=== PATIENT | female | born 1935 | race Caucasian/White ===

== ENCOUNTER 2016-11-24 19:18 | Emergency (ER) | payer MEDICARE, MEDICAID ==
[~2016-11-24] VITALS: Ht 160 cm; Wt 76.8 kg
[~2016-11-24 19:18] MED LIST: AMIODARONE200 MG PO; ASPIRIN LOW DOS81 M1 PO; AZITHROMYCIN250 MG PO; BUPROPION150 MG PO; COMBIVENT INH; COUMADIN5 MG PO; DONEPEZIL PO; KLOR-CON 1010 ME1 PO; LASIX 20 MG TAB20 MG PO; LEVOTHYROXIN150 MC1 OR; LISINOPRIL10 MG OR; LOPRESSOR25 MG PO; OMEPRAZOLE20 MG PO; PRAVASTATIN40 MG PO; PREDNISONE10 MG PO; PROZAC40 MG; VICODIN1 TAB PO; ZOCOR20 MG OR
[2016-11-24 22:00] VITALS: BP 174/78
[2016-11-24] MEDS ORDERED: MEDDOSEPAK PO (22:01)
[2016-11-24] MEDS ORDERED: PEPCID20 MG PO (22:01)
[2016-11-24] MEDS ORDERED: BENADRYL 50MG C50 MG PO (22:01)
== END 2016-11-24 22:35 | disposition home or self-care (01) ==
LOC: ED 19:18
DX: T78.3XXA Angioneurotic edema, initial encounter (principal)

== ENCOUNTER 2017-12-25 15:37 | Emergency (ER) | payer MEDICARE, MEDICAID ==
[~2017-12-25] VITALS: Ht 160 cm; Wt 77.0 kg
[~2017-12-25 15:37] MED LIST changes: +ALDACTONE25 MG PO; +BENADRYL 50MG C50 MG PO; +CYMBALTA30 MG PO; +CYMBALTA60 MG PO; +DITROPAN PO; +FOLIC ACID1 M1 PO; +FOLIC ACID1 MG PO; +KLOR-CON 1010 MEQ PO; +LEVOTHYROXIN125 MC1 PO; +LISINOPRIL10 MG PO; +MEDDOSEPAK PO; +METOPROL TAR25 MG PO; +PEPCID20 MG PO; +PRAMIPEXOLE0.25 MG PO; +WELLBUTRIN SR150 MG PO
[2017-12-25] MEDS ORDERED: PERMETHRIN5 % EX (16:11)
[2017-12-25] MEDS ORDERED: VALACYCLOVIR500 MG PO (16:11)
[2017-12-25 16:20] VITALS: BP 125/49
== END 2017-12-25 16:20 | disposition home or self-care (01) ==
LOC: ED 15:37
DX: B02.9 Zoster without complications (principal); B86 Scabies

== ENCOUNTER 2018-06-04 02:27 | Emergency (ER) | payer MEDICARE, MEDICAID ==
[~2018-06-04] VITALS: Ht 157.5 cm; Wt 75.9 kg
[~2018-06-04 02:27] MED LIST changes: +PERMETHRIN5 % EX; +VALACYCLOVIR500 MG PO
[2018-06-04 03:17] LABS: HEMATOCRIT 35.1 % (37.0-47.0); HEMOGLOBIN 10.4 g/dl (12.0-16.0); IMMATURE GRANULOCYTES 0.4 % (0.0-5.0); MEAN CORPUSCULAR HGB 28.7 pG CALC (26.0-32.0); MEAN CORPUSCULAR HGB CONC 29.6 g/L CALC (32.0-36.0); NEUT# 9.12 thou/uL (2.00-7.15); RED BLOOD COUNT 3.62 mill/uL (4.20-5.60); RED CELL DISTRI WIDTH 15.6 % (11.5-15.5)
[2018-06-04 03:28] LABS: URINE BLOOD DIPSTICK MODERATE (NEGATIVE); URINE CLARITY SL CLOUDY; URINE COLOR YELLOW; URINE GLUCOSE - DIPSTICK NEGATIVE (NEGATIVE); URINE KETONE 15 mg/dL (NEGATIVE); URINE LEUK ESTERASE NEGATIVE (NEGATIVE); URINE NITRITE - DIPSTICK NEGATIVE (Negative); URINE PH 5.5 (4.5-8.0); URINE PROTEIN - DIPSTICK >=300 mg/dL (NEG-TRACE); URINE SPECIFIC GRAVITY >=1.030; URINE UROBILINOGEN - DIPSTICK 0.2 E.U./dL (0.2)
[2018-06-04 03:29] LABS: ALBUMIN 3.3 g/dL (3.2-5.0); BILIRUBIN, TOTAL 0.4 mg/dL (0.0-1.4); CREATININE 1.2 mg/dL (0.5-1.0); POTASSIUM 4.5 mmol/l (3.5-5.1); TOTAL PROTEIN 5.9 g/dL (6.3-8.2)
[2018-06-04 03:31] LABS: URINE BACTERIA FEW hpf; URINE BILIRUBIN - DIPSTICK NEGATIVE (NEGATIVE); URINE HYALINE CAST FEW lpf (NONE-RARE); URINE MUCUS FEW hpf (NONE-FEW); URINE SQUAMOUS EPITHELIAL CELL FEW EPI/hpf (0-FEW)
[2018-06-04 03:32] LABS: COCAINE NEGATIVE (NEGATIVE)
[2018-06-04 03:33] LABS: BARBITURATES NEGATIVE (NEGATIVE); METHADONE NEGATIVE (NEGATIVE); OXCYCODONE NEGATIVE (NEGATIVE); TETRAHYDROCANNABIONOL NEGATIVE (NEGATIVE); TRICYLIC ANTIDEPRESSANTS NEGATIVE (NEGATIVE)
[2018-06-04 06:15] VITALS: BP 91/57
== END 2018-06-04 06:15 | disposition short-term general hospital (02) ==
LOC: ED 02:27
PROVIDERS: Emergency Medicine
DX: K57.33 Diverticulitis of large intestine without perforation or abscess with bleeding (principal); D64.9 Anemia, unspecified; M54.5 Low back pain; I11.0 Hypertensive heart disease with heart failure; I50.9 Heart failure, unspecified; E03.9 Hypothyroidism, unspecified; F32.9 Major depressive disorder, single episode, unspecified; F41.9 Anxiety disorder, unspecified; Z86.19 Personal history of other infectious and parasitic diseases
CPT/HCPCS: J1956

== ENCOUNTER 2018-07-31 11:53 | Inpatient (IN) | payer MEDICARE, MEDICAID ==
[~2018-07-31] VITALS: Ht 157.5 cm; Wt 71.2 kg
--- NOTE | 2018-07-31 12:05 | NUR ---
PATIENT ARRIVED VIA EMS AND PHYSICIAN AT BEDSIDE FOR EVAL. PATIENT STATES HAS GENERALIZED WEAKNESS FOR PAST TWO WEEKS AND PROGRESSIVELY GETTING WORSE.
--- NOTE | 2018-07-31 12:16 | NUR ---
PT STATES TO NURSE "DO YOU SEE THAT SHIRT BREATHING OVER THERE?". 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 PT STATES SHE SEES HER SHERIE BEARS BREATHING AT HOME OFTEN. PT STATES SHE ALSO HAS SEEN "SNAKES THAT WERENT THERE AND THEY SCARED ME TO ". PT STATES SHE HAS HAVING VISUAL HALLUCINATIONS OFF AND ON FOR ABOUT THREE YEARS BUT HAVE BECOME MORE FREQUENT OVER THE LAST TWO WEEKS. PT FURTHER STATES "I SAW TWO LADIES IN MY HOUSE THIS MORNING WHO WEAR MAKING DOLL CLOTHES". PT DENIES THAT VISIONS TALK TO HER BUT STATES "I TALK TO THEM". PT STATES SHE TOLD HER PSYCHIATRIST ,DR SNYDER TWO VISITS AGO ABOUT HALLUCINAITONS BUT "HE DIDNT SAY ANYTHING". PT STATES SHE SEES DR SNYDER FOR "MY DEPRESSION". DR VIRK INFORMED OF ABOVE.
[2018-07-31 12:40] LABS: HEMATOCRIT 37.2 % (37.0-47.0); HEMOGLOBIN 11.4 g/dl (12.0-16.0); IMMATURE GRANULOCYTES 0.4 % (0.0-5.0); MEAN CELL VOLUME 94.7 fL CALC (80.0-100.0); MEAN CORPUSCULAR HGB CONC 30.6 g/L CALC (32.0-36.0); NEUT# 3.63 thou/uL (2.00-7.15); RED BLOOD COUNT 3.93 mill/uL (4.20-5.60); RED CELL DISTRI WIDTH 15.6 % (11.5-15.5)
[2018-07-31 12:45] LABS: ALKALINE PHOSPHATASE 119 u/l (38-126); ANION GAP 13 (6-22 (CALC)); BILIRUBIN, TOTAL 0.5 mg/dL (0.0-1.4); BUN 53 mg/dL (8-23); BUN/CREATININE RATIO 31 (12-20 (CALC)); C-REACTIVE PROTEIN < 0.5 mg/dL (0-0.9); CARBON DIOXIDE 25 mmol/l (22-30); CHLORIDE 106 mmol/l (95-108); CREATININE 1.7 mg/dL (0.5-1.0); GFR 29 ML/MIN (>=60 (CALC)); GFR FOR AFR.AMER. 35 ML/MIN (>=60 (CALC)); POTASSIUM 4.7 mmol/l (3.5-5.1); SGOT/AST 49 u/l (9-36); SODIUM 139 mmol/l (137-146)
[2018-07-31 12:47] LABS: ALBUMIN 4.2 g/dL (3.2-5.0); TOTAL PROTEIN 7.3 g/dL (6.3-8.2)
[2018-07-31 12:54] LABS: MYOGLOBIN 174 ng/mL (0 - 62)
--- NOTE | 2018-07-31 13:11 | NUR ---
PT RESTING WITHOUT COMPLAINT. VSS AT THIS TIME.
--- NOTE | 2018-07-31 13:30 | NUR ---
ENTERED PTS ROOM AND SHE WAS STRIPPING OFF ALL [place] AND FLAILING ARMS ABOUT. ASKED PT WHAT WAS WRONG AND SHE STARTED SCREAMING " THEY LEFT ME IN HERE WITH [facility] LIKE LAST TIME WITH NO CALL LIGHT. PT VERY ANXIOUS, SHOWED PT CALL LIGHT WAS ON HER STOMACH THE ENTIRE TIME. PT STARTED TO SETTLE DOWN, STATES THEY PUT ME IN A ROOM AT [place] TWO WEEKS AGO AND LEFT ME THERE. PT STATES SHE WAS AT [place] "BECAUSE MY NEIGHBOR CALLED THE [employer]ING CL[employer]ER BECAUSE I WAS SEEING SNAKES, BUT THEY WERENT HURTING ANYONE". DR VIRK AT BEDSIDE.
[2018-07-31] MEDS ORDERED: CLOPIDOGREL75 MG PO (13:53)
[2018-07-31] MEDS ORDERED: [UNRECOGNIZED DRUG - CODE] PO (13:54)
[2018-07-31] MEDS ORDERED: DULOXETINE HCL60 MG PO (13:55)
[2018-07-31] MEDS ORDERED: ROPINIROLE1 MG PO (13:59)
[2018-07-31] MEDS ORDERED: SPIRONOLACTONE25 MG PO (13:59)
--- NOTE | 2018-07-31 14:00 | NUR ---
PT UP TO USE BSC WITH ASSIST OF NURSE. PT LEANS FORWARD TO PUT WEIGHT LARGELY ON ARMS ON BED AND BSC HANDLES. PT MOVES SLOW AND STATES HER LEGS "DONT ALWAYS DO WHAT I TELL THEM TOO". ASSISTED BACK TO BED AFTER URINATION.
[2018-07-31 14:28] LABS: URINE BILIRUBIN - DIPSTICK NEGATIVE (NEGATIVE); URINE BLOOD DIPSTICK NEGATIVE (NEGATIVE); URINE COLOR YELLOW; URINE GLUCOSE - DIPSTICK NEGATIVE (NEGATIVE); URINE KETONE NEGATIVE (NEGATIVE); URINE LEUK ESTERASE NEGATIVE (NEGATIVE); URINE NITRITE - DIPSTICK NEGATIVE (Negative); URINE PH 5.5 (4.5-8.0); URINE PROTEIN - DIPSTICK NEGATIVE (NEG-TRACE); URINE SPECIFIC GRAVITY >=1.030; URINE UROBILINOGEN - DIPSTICK 0.2 E.U./dL (0.2)
[2018-07-31 14:35] LABS: URINE CLARITY CLEAR
--- NOTE | 2018-07-31 14:45 | NUR ---
ASSISTED PT TO SIT UP ON BEDSIDE WITH FEET DANGLING DUE TO "NADYA HORSES IN MY LEGS".
--- NOTE | 2018-07-31 15:04 | NUR ---
PT SITTING UP ON SIDE OF BED EATING LUNCH TRAY. NO OBVIOUS EPISODES OF VISUAL HALLUCINATIONS IN THE LAST FEW HOURS. PT STATES CRAMPING IN LEGS HAS SUBSIDED WITH SITTING UP WITH LEGS DANGLING. VSS. IVF BOLUS CONTINUES WITHOUT DIFFICULTY.
[2018-07-31 15:30] VITALS: BP 103/49
--- NOTE | 2018-07-31 15:30 | NUR ---
PT UP TO BEDSIDE FOR ORTHOSTATIC VS. PT STATES SHE IS DIZZY WHEN GOING FROM SUPINE TO SITTING. IVF BOLUS CONTINUES
[2018-07-31 16:07] LABS: BARBITURATES NEGATIVE (NEGATIVE); COCAINE NEGATIVE (NEGATIVE); METHADONE NEGATIVE (NEGATIVE); OXCYCODONE NEGATIVE (NEGATIVE); TETRAHYDROCANNABIONOL NEGATIVE (NEGATIVE); TRICYLIC ANTIDEPRESSANTS NEGATIVE (NEGATIVE)
--- NOTE | 2018-07-31 16:33 | NUR ---
CALLED REPORT TO YOGESH CHRISTIE LPN
--- NOTE | 2018-07-31 17:01 | NUR ---
TRANSPORTED TO [facility] VIA STRETCHER IN STABLE CONDITION
--- NOTE | 2018-07-31 17:06 | NUR ---
PT ARRIVES TO THE FLOOR VIA STRETCHER FROM ER IN STABLE CONDITION WITH SOPHIE QUEZADA RN. PT TRANSFERED FROM [facility] TO BED WITH 2 ASSIST. PT AT THIS TIME IS A&O x3. PT ABLE TO ANSWER MY QUESTIONS APPROPIATELY. ASSESMENT COMPLETED AT THIS TIME(SEE INTERVENTIONS). LUNG SOUNDS CLEAR BILATERALLY. 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 NO EDEMA NOTED. BRUSING TO ABD NOTED PT STATES "I SOMETIMES GET BELLY ACHES AND WHEN THAT HAPPENS AND IF IT GETS TOO BAD I PUNCH MYSELF IN THE STOMACH". REDDISH BRUSING NOTED TO LEFT KNEE PT STATES" THATS BEEN LIKE THAT I THINK FROM CRAWLING AROUND ON THE FLOOR" TILTROTOR CREW CHIEF ASKED WHY SHE WAS ON THE FLOOR PT STATES "BECAUSE I WAS FIXING AN OUTLET" PT HAS SMALL AREA TO RIGHT HEEL THAT IS CLEAN, DRY AND INTACT. ALSO TO RED AND DRIED BLOOD NOTED TO PINKY TOE. PT COMPLAINING OF SEVERE LEG CRAMPS. #20 IN THE RAC FLUSHES WELL. FLUIDS HUNG PER ORDER. PT SET UP FOR SUPPER. NO OTHER COMPLAINTS AT THIS TIME. CALL NEREIDA IN REACH. WILL CONTINUE TO MONITOR.
[2018-07-31 17:34] VITALS: BP 100/50
--- NOTE | 2018-07-31 18:10 | NUR ---
DR GODINEZ NOTIFIED OF PTS LEG PAIN. NEW ORDERS RECEIVED.
[2018-07-31 19:00] VITALS: BP 120/61
--- NOTE | 2018-07-31 19:34 | NUR ---
PATIENT SITTING ON THE SIDE OF THE BED ROCKING BACK AND FORTH-EXTREMELY RESTLESS, C/O SEVERE BLE PAIN AND PAIN IN HER WAIST. PATIENT MEDICATED FOR HIGH ANXIETY WITH ATIVAN 1MG IVP ORDERED VIA RIGHT AC SITE-SITE APPEARS HEALTHY WITH GOOD BLOOD RETURN. IVF LR PATENT AND INFUSING AT 100CC/HR. ASSISTED PATIENT BACK INTO THE BED. HOB ELEVATED AND PATIENT WITH GOOD EFFECT FROM ATIVAN GIVEN. BED ALARM IN PLACE FOR PATIENT SAFETY. CALL LIGHT IN REACH. WILL CONT TO MONITOR.
--- NOTE | 2018-07-31 22:24 | NUR ---
RESPONDING TO BED ALARM-PATIENT FOUND SITTING UP AGAIN ON THE SIDE OF THE BED WITH BLOOD FROM IV SITE EVERYWHERE IN THE ROOM. LINENS ARE BLOODY, BLOOD ON THE FLOOR, BLOOD ALL OVER PATIENT, PATIENT CONT WITH THE ROCKING AND INAPPROPRIATE BEHAVIOR. PATIENT APPEARS TO BE HAVING HALLUCINATIONS. PATIENT ASSISTED BACK TO THE BED AND COMPLETE BED BATH WAS GIVEN. LINENS WERE ALL CHANGED AND HOUSEKEEPING CALL TO ASSIST WITH CLEAN UP OF THE ROOM. DR. GODINEZ CALLED REGUARDING PATIENT INAPPROPRIATE BEHAVIOR EVEN AFTER BEING MEDICATED EARLIER WITH ATIVAN. NEW ORDER RECIEVED AND AWAITING IT BEING PROFILED ON EMAR-WILL MEDICATE WHEN ABLE. BED ALARM IN PLACE. WILL CONT TO MONITOR.
--- NOTE | 2018-07-31 22:30 | NUR ---
RESPONDING TO BED ALARM-PATIENT FOUND SITTING UP ON THE SIDE OF THE BED WITH BLOOD FROM IV SITE EVERYWHERE IN THE ROOM. LINENS ARE BLOODY, BLOOD ON THE FLOOR AND PATIENT PLAYING IN THE BLOOD ON THE FLOOR, BLOOD ALL OVER PATIENT. PATIENT APPEARS TO BE HAVOING HALLUCINATIONS, INAPPROPRIATE BEHAVIOR. PATIENT MAX ASSIST BACK INTO THE BED AND COMPLETE BEDPATH AND LINEN CHANGE WAS DONE. PATIENT WITH BRUISING NOTED ALL OVER HER BODY, ARMS AND LEGS. HOUSEKEEPING CALLED FOR TO ASSIST WITH ROOM CLEAN UP. DR. GODINEZ CALLED REGUARDING PATIENT OINAPPROPRIATE BEHAVIOR EVEN AFTER BEING MEDICATED WITH ATIVAN EARLIER. NEW ORDER RECIEVED AND AWAITING IT TO BE PROFILED ON E-MAR. WILL MEDICATE WHEN ABLE. BED ALARM IN PLACE. WILL CONT TO MONITOR.
[2018-08-01 00:28] VITALS: BP 157/73
--- NOTE | 2018-08-01 02:20 | NUR ---
PATIENT RESTING IN BED WITH BED ALARMS IN PLACE FOR PATIENT SAFETY. PATIENT IS CALMER BUT STILL RESTLESS WITH CONSTANT TWITCHING AND MOVEMENT OF ALL EXTREMITIIES. IVF PATENT AND INFUSING VIA RIGHT AC SITE AT 100CC/.HR. SITE REMAINS HEALTHY AT THIS TIME. BED ALARM REMAINS IN PLACE FOR PATIENT SAFETY. CALL LIGHT IN REACH. WILL CONT TO MONITOR.
[2018-08-01 04:11] VITALS: BP 99/53
--- NOTE | 2018-08-01 04:15 | NUR ---
RESPONDED TO BED ALARM AND PATIENT IS [id number] TO GET OOB-SPRAWLED ACROSS THE BED. PATIENT CONT WITH SPASTIC MOVEMENT OF ARMS AND LEGS. STATES THAT SHE HAS TO URINATE. MAX ASSIST TO TRANSFER PATIENT FROM BED TO BSC-PATIENT IS INCONT OF MODERATE AMT OF URINE DURING TRANSFERAND UNABLE TO STAND TO ASSIST WITH THE TRANSFER.PLACED ON BSC TO VOID BY STAFF. CONT TO HAVE SPASTIC MOVEMENTS AND FLAILING HER ARMS AND LEGS WHILE URINATING ON THE BSC. MUMBLING TO HERSELF. BEHAVIOR IS INAPPROPRIATE. WHEN ASKED SOME QUESTIONS PATIENT IS ABLE TO ANSWER CORRECTLY. KNOWS WHERE SHE IS AND BIRTHDATE. KNOWS HER NAME BUT THEN GOES BACK TO INAPPROPRIATE BEHAVIOR. MAX ASSIST BACK TO THE BED. REPOSITIONED. STAFF SITTING AT BEDSIDE AT THIS TIME FOR PATIENT SAFETY. WILL CONT TO MONITOR.
[2018-08-01 05:09] LABS: HEMATOCRIT 34.6 % (37.0-47.0); HEMOGLOBIN 10.7 g/dl (12.0-16.0); IMMATURE GRANULOCYTES 0.5 % (0.0-5.0); MEAN CELL VOLUME 94.8 fL CALC (80.0-100.0); MEAN CORPUSCULAR HGB 29.3 pG CALC (26.0-32.0); MEAN CORPUSCULAR HGB CONC 30.9 g/L CALC (32.0-36.0); NEUT# 6.94 thou/uL (2.00-7.15); RED BLOOD COUNT 3.65 mill/uL (4.20-5.60); RED CELL DISTRI WIDTH 15.5 % (11.5-15.5)
[2018-08-01 05:20] LABS: ALBUMIN 3.7 g/dL (3.2-5.0); BILIRUBIN, TOTAL 0.5 mg/dL (0.0-1.4); CREATININE 1.6 mg/dL (0.5-1.0); MAGNESIUM 1.8 mg/dL (1.6-2.3); POTASSIUM 4.8 mmol/l (3.5-5.1); TOTAL PROTEIN 6.3 g/dL (6.3-8.2)
--- NOTE | 2018-08-01 06:26 | NUR ---
PATIENT CONT WITH ABNORMAL BEHAVIOR WITH SPASTIC MOVEMENTS WITH ARMS AND LEGS. MUMBLING TO HERSELF. STAFF SITTING AT BEDSIDE TO PREVENT PATIENT FROM INJURING HERSELF. MEDICATED WITH ATIVAN 1MG IVP FOR EXTREMELY HIGH ANXIETY. BED ALARM IN PLACE FOR PATIENT SAFETY. CALL LIGHT IN REACH. WILL CONT TO MONTIOR.
--- NOTE | 2018-08-01 07:00 | NUR ---
RECEIVED REPORT FROM JEAN-CLAUDE MENG. PT RESTLESS IN BED AT THIS TIME. SITER FLORA AT BEDSIDE FOR PTS SAFETY. CALL PADRON IN REACH. WILL CONTINUE TO MONITOR.
[2018-08-01 08:53] VITALS: BP 109/49
--- NOTE | 2018-08-01 08:53 | NUR ---
PT RESTLESS IN BED INCONTINENT OF URINE. ROLLING AROUND THE BED. SITTER JAH AT BEDSIDE FOR PTS SAFTEY. PT AWAKES TO LOUD VERBAL STIMUILI. PT MEDICATED PER ORDER. TOOK PO PILLS WITH WATER FINE. 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 HYPOACTIVE BOWEL SOUNDS. NO SWELLING OR EDEMA NOTED. PT HAS MULITPLE BRUISES ALL OVER BODY. PT IS LETHARGIC, MUMBLING THINGS TO SELF.# 20 IN THE RAC INFUSING WELL NO REDNESS OR EDEMA NOTED. CALL PADRON IN REACH WILL CONTINUE TO MONITOR.
--- NOTE | 2018-08-01 10:30 | NUR ---
PT HAVING EPISODES OF INCONTINENCE. PT CLEANED AND REPSITIONED IN BED. PT REMAINS DROWSY. NEICE AT BEDSIDE.
--- NOTE | 2018-08-01 11:40 | NUR ---
PT VOIDED 20CC OF URINE IN BED TAVAREZ. PT ADAMANT ABOUT SITTING ON THE SIDE OF THE BED. PILLOWS PLACED BEHIND PT FOR SANAM LUNA IS SITTING IN A CHAIR IN FRONT OF HER. NIECE FEEDING PT AT THIS TIME. BED ALARM IN PLACE. CALL PADRON IN REACH. WILL CONTINUE TO MONITOR.
--- NOTE | 2018-08-01 15:03 | NUR ---
PT TAKEN DOWN TO RADIOLOGY FOR US/ OF KIDNEYS AND BLE, INSTRUCTED PT TO TRY HER BEST NOT TO MOVE HER LOWER EXTREMITIES. PT TAKEN VIA STRETCHER ACCOMPANIED BY REHAB AIDE. CONTINUE TO MONITOR.
--- NOTE | 2018-08-01 15:35 | NUR ---
PT RETURNED FROM ULTRA SOUND. PT YELLING AND MOANING. PT REPOSTIONED BACK INTO BED. MEDS GIVEN ORDERED FOR AGITATION. CALL PADRON IN REACH. WILL CONTINUE TO MONITOR.
[2018-08-01 16:47] VITALS: BP 109/49
--- NOTE | 2018-08-01 18:17 | NUR ---
PT RESTING IN BED. PT CALM AT THIS TIME. PT CLEANED BY TRANSPORTATION PLANNING TECHNICIAN OF LARGE AMOUNT OF URINE. WILL CONTINUE TO MONITOR.
[2018-08-01 18:45] VITALS: BP 126/72
--- NOTE | 2018-08-01 19:59 | NUR ---
PATIENT IS RESTING QUIETLY IN BED AT THIS TIME WITH EYES CLOSED. RESP ARE EVEN AND UNLABORED. SALINE LOCK TO RIGHT AC 8INTACT AND APPEARS HEALTHY AT THIS TIME. BED ALARM IN PLACE FOR PATIENT SAFETY. CALL LIGHT IN REACH. WILL CONT TO MONITOR.
--- NOTE | 2018-08-01 20:50 | NUR ---
PATIENT RESTING IN BED. REFUSES KARIME FLOOD STATES THAT SHE HAD 2BM'S TODAY. MEDICATED FOR SLEEP WITH ATIVAN AND FOR PAIN WITH PERCOCET. CALL LIGHT IN REACH. WILL CONT TO MONITOR.
--- NOTE | 2018-08-01 22:40 | NUR ---
PATIENT BECOMING SOMEWHAT RESTLESS-MEDICATED WITH ATIVAN 1MG IVP ORDERED FOR ANXIETY. BED ALARM IN PLACE. CALL LIGHT IN REACH. WILL CONT TO MONITOR.
--- NOTE | 2018-08-01 23:39 | NUR ---
PATIENT CALLED FOR ASSISTANCE-STATES THAT SHE HAS TO URINATE. PATIENT ASSSITED WITH BEDPAN AND VOIDED 300CC OF YELLOW URINE. ASSISTED WITH VERN-CARE. PATIENT CONT TO HAVE FREQ MOVEMENT OF HER LEGS. DENIES ANY PAIN AT THIS TIME. PATIENT ANSWERS SOME SIPLE QUESTIONS APPROPRIATELY BUT NO EYE CONTACT IS BEING MADE. BED ALARM IN BACK IN PLACE. CALL LIGHT IN REACH. WILL CONT TO MONITOR.
--- NOTE | 2018-08-02 03:39 | NUR ---
PATIENT SLOIGHTLY AGITATED-PLACE ON BEDPAN TO VOID. PATIENT THEN MEDICATED FOR ANXIETY WITH ATIVAN 1MG IVP ORDERED. BED ALARM IN PLAE. CALL LIGHT IN REACH. WILL CONT TO MONITOR.
[2018-08-02 04:22] VITALS: BP 105/55
[2018-08-02 05:12] LABS: HEMATOCRIT 32.9 % (37.0-47.0); IMMATURE GRANULOCYTES 0.5 % (0.0-5.0); MEAN CELL VOLUME 96.2 fL CALC (80.0-100.0); MEAN CORPUSCULAR HGB 29.2 pG CALC (26.0-32.0); MEAN CORPUSCULAR HGB CONC 30.4 g/L CALC (32.0-36.0); NEUT# 4.29 thou/uL (2.00-7.15); RED BLOOD COUNT 3.42 mill/uL (4.20-5.60); RED CELL DISTRI WIDTH 15.6 % (11.5-15.5)
--- NOTE | 2018-08-02 05:24 | NUR ---
PATIENT RESTING IN BED WITH RESTLESS LEGS AGAIN AND C/O LEG CRAMPING. PATIENT MEDICATED WITH DILAUDID 1MG IVP FOR PAIN. BED ALARM IN PLACE FOR PATIENT SAFETY. CALL LIGHT IN REACH. WILL CONT TO MONITOR.
[2018-08-02 05:32] LABS: ALBUMIN 3.1 g/dL (3.2-5.0); BILIRUBIN, TOTAL 0.7 mg/dL (0.0-1.4); CREATININE 1.2 mg/dL (0.5-1.0); MAGNESIUM 1.8 mg/dL (1.6-2.3); POTASSIUM 4.3 mmol/l (3.5-5.1); TOTAL PROTEIN 5.6 g/dL (6.3-8.2)
--- NOTE | 2018-08-02 07:22 | NUR ---
REPORT RECEIVED FROM TAQUERIA BERMEO. PT SUPINE IN BED. SLEEPING. CALL LIGHT WITHIN REACH. BED ALARM SET FOR SAFETY. WILL CONTINUE TO MONITOR.
[2018-08-02 08:20] VITALS: BP 116/47
--- NOTE | 2018-08-02 09:06 | NUR ---
PT SITTING IN WHEELCHAIR BEDSIDE BED. UNDERWATER ROBOTICIST AT BEDSIDE TO ASSIST WITH MEAL AND SAFETY. PLAN OF CARE REVIEWED. AOX3, PT DOES NOT REMEMBER ADMISSION TO HOSPITAL OR PRECIPITATING FACTORS. RE-ORIENTED TO SITUATION. FALL PRECAUTIONS REINFORCED. CALL LIGHT REVIEWED AND IN REACH. GENERALIZED WEAKNESS NOTED. DROWSY.
--- NOTE | 2018-08-02 10:23 | NUR ---
MARGARET DONAHUE IN TO SEE PT. AT THIS TIME.
--- NOTE | 2018-08-02 12:30 | NUR ---
DR. CRANE IN TO SEE PT.
[2018-08-02 15:50] VITALS: BP 104/60
--- NOTE | 2018-08-02 16:24 | NUR ---
ATTEMPTED KAYCE HOSE APPLICATION AGAIN TODAY PER ORDER. PT. REFUSING R/T LEG PAIN. PT. INTERMITTENTLY SCREAMING OUT, CURSING. MOT ORIENTED TO SITUATION. STATES "I'M FUCKING PARALYZED." PT. ABLE TO REPOSITION LEGS ON OWN. EMOTIONAL SUPPORT PROVIDED FOR DE-ESCALATION.
[2018-08-02 19:01] VITALS: BP 112/61
--- NOTE | 2018-08-02 19:10 | NUR ---
REPORT RECEIVED FROM DAY NURSE. PT IS SITTING UPRIGHT IN RECLINER SLEEPING. NO S/S OF DISTRESS AT THIS TIME. CALL LIGHT AT SIDE W/IN REACH.
--- NOTE | 2018-08-02 21:16 | NUR ---
PT MEDICATED ORDERS PROVIDE AND FOR C/O PAIN. PT LOCX4/SELF,,LOCATION,YEAR, BUT ALSO SAYS INAPPROPRIATE THINGS IN A GARBLISH MANOR. DIFFICULT TO UNDERSTAND AT TIMES AND THEN WILL BE VERY CLEAR SPOKEN AT TIMES. BED ALARM IS ON. PT ASKED WHO ALL IS IN THE ROOM. I INFORMED HER ONLY ME, BUT SHE THOUGHT THERE WERE MORE PEOPLE IN THE ROOM. WOULD NOT DESCRIBE THEM. I ATTEMPTED AT REORIENTING PT.
--- NOTE | 2018-08-02 23:35 | NUR ---
PT IV SITE LEAKING/APPEARS HEALTHY, SITE REMOVED AND NEW IV SITE ACCESSED. PT MEDICATED ORDERS PROVIDE FOR AXIOUSNESS, ANXIETY. PT IS TRYING TO AMBULATE AND UN ABLE, BED ALARM IS ON. CALL LIGHT AT SIDE.
--- NOTE | 2018-08-03 02:16 | NUR ---
PT IS EXTREMELY FIDGETY SETTING OFF BED ALARMS MULTIPLE TIMES THROUGHOUT NIGHT. AIDE IS SITTING W/PT AT THIS TIME PREVENTATIVE AND TO ATTEMPT TO COMFORT/CALM PT. WILL CONTINUE TO MONITOR.
[2018-08-03 04:29] VITALS: BP 104/57
[2018-08-03 05:08] LABS: HEMATOCRIT 30.9 % (37.0-47.0); HEMOGLOBIN 9.3 g/dl (12.0-16.0); IMMATURE GRANULOCYTES 0.4 % (0.0-5.0); MEAN CELL VOLUME 96.3 fL CALC (80.0-100.0); MEAN CORPUSCULAR HGB CONC 30.1 g/L CALC (32.0-36.0); NEUT# 5.78 thou/uL (2.00-7.15); RED BLOOD COUNT 3.21 mill/uL (4.20-5.60); RED CELL DISTRI WIDTH 15.4 % (11.5-15.5)
[2018-08-03 05:18] LABS: CREATININE 1.3 mg/dL (0.5-1.0); MAGNESIUM 1.7 mg/dL (1.6-2.3); POTASSIUM 4.4 mmol/l (3.5-5.1)
--- NOTE | 2018-08-03 05:41 | NUR ---
PT ASSISTED TO BSC, SHE HELD HER WEIGHT W/HER LEGS W/ASSISTANCE. STRONGER THAN LAST NIGHT ATTEMPT. PT ASSISTED BACK TO BED AND BED ALARM PLACED.
--- NOTE | 2018-08-03 07:00 | NUR ---
RECEIVED REPORT FROM RAMON MENG. ATMOSPHERIC CHEMIST AT BEDSIDE WITH PT ASSISTING HER WITH ADLS. NO S/S OF DISTRESS. WILL CONTINUE TO MONITOR.
--- NOTE | 2018-08-03 09:00 | NUR ---
PT RESTING IN BED EATING BREAKFAST. 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 BOWEL SOUNDS ACTIVE, NO SWELLING OR EDEMA NOTED. PT HAS MULITPLE BRUSING ON BODY AND REDDENED SKIN TO LOWER EXTREMITIES. IV FLUSHES WELL, NO REDNESS OR EDNEAM NOTED. PT REORIENTED TO ROOM AND CALL PADRON SYSTEM. CALL PADRON IN REACH. WILL CONTINUE TO MONITOR.
[2018-08-03 09:07] VITALS: BP 130/63
--- NOTE | 2018-08-03 10:25 | NUR ---
PT MEDICATED WITH TYLENOL FOR PAIN. PT COMPLAINING OF 10/10 PAIN. CHERYL AT BEDSIDE. PT RESTING HEAD ON BEDSIDE TABLE THEN THROWING HERSELF BACKWARDS. PT STATES HER PAIN IS BAD. CALL PADRON IN REACH. WILL CONTINUE TO MONITOR.
--- NOTE | 2018-08-03 10:48 | NUR ---
PT MEDICATED FOR PAIN. PT THRASHING AROUND AND CRYING COMPLAINING OF 10/[address] PAIN. BED ALARM IN PL[address] WILL CONTINUE TO MONITOR.
--- NOTE | 2018-08-03 11:30 | NUR ---
PT IN CHAIR AT THIS TIME EATING LUNCH. NIECE AT BEDSIDE. PT IS THROWING HERSELF BACKWARD, CURSING AND COMPLAINING OF 10/10 PAIN IN LOWER EXTREMITIES. GODFREY ROBLES AWARE OF PT STATUS. BED ALARM IN PLACE AT THIS TIME. WILL CONTINUE TO MONITOR.
--- NOTE | 2018-08-03 11:33 | NUR ---
AND GODFREY BURNHAM,ANRP AT BEDSIDE DISCUSSING POC.
--- NOTE | 2018-08-03 11:47 | NUR ---
PT STILL COMPLAINING FOR PAIN. MEDICATED ORDERED. PT STILL COMPLAINING OF 10/10 PAIN. GODFREY MADE AWARE. CALL PADRON IN REACH. WILL CONTINUE TO MONITOR.
--- NOTE | 2018-08-03 13:40 | NUR ---
PT MEDICATED WITH ATIVAN AT THIS TIME PT ROLLING AROUND AND YELLING. BED ALARM IN PLACE. WILL CONTINUE TO MONITOR.
--- NOTE | 2018-08-03 14:50 | NUR ---
RAMESH SENIOR SOFTWARE TEST ENGINEER IN TO SEE PT. GENERAL MAINTENANCE HELPER JEAN-CLAUDE NOTIFED. SENIOR SOFTWARE TEST ENGINEER IN WITH JEAN-CLAUDE FROM CASE MANAGEMENT.
[2018-08-03 15:00] VITALS: BP 116/50
--- NOTE | 2018-08-03 16:00 | NUR ---
PT RESTING IN BED AT THIS TIME, MUMBLING AND TOSSING AND TURNING. NEICE AT BEDSIDE. WILL CONTINUE TO MONITOR. CALL PADRON IN REACH.
[2018-08-03 19:00] VITALS: BP 170/57
--- NOTE | 2018-08-03 19:49 | NUR ---
PT SET OFF BED ALARM, CONFUSED NOT KNOWING WHERE SHE IS. PT IS KICKING HER LEGS C/O PAIN IN LEGS. PT REORIENTED TO SITUATION AND LOCATION AND BED ALARM PLACED.
--- NOTE | 2018-08-03 20:05 | NUR ---
PT MEDICATED ORDERS PROVIDE. PT WAS WRITHING LIKE SHE WAS IN EXTREME PAIN IN LOWER EXTREMETIES BILAT THEN SHE WOULD ACT GROGGY UNABLE TO HOLD HER CUP. THEN SHE WOULD CLIMB OUT OF BED REPORTING PAIN IN LEGS AND THEN APPEAR GROGGY AND UN ABLE TO HOLD HER CUP. PT WAS ABLE TO ANSWER NAME, , EXACT LOCATION.
--- NOTE | 2018-08-03 21:42 | NUR ---
PT IS SLEEPING AT THIS TIME. BED ALARM ON.
--- NOTE | 2018-08-04 01:20 | NUR ---
PT SET OFF BED ALARM, PT FOUND SITTING ON SIDE OF THE BED ATTEMPTING TO GET UP TO USE RESTROOM. PT ASSISTED TO BSC AND BACK TO BED. BED ALARM ON, LIGHTS ARE LOW AND CALL LIGHT AT SIDE.
--- NOTE | 2018-08-04 03:15 | NUR ---
PT IS SLEEPING, NO S/S OF DISTRESS NOTED. CALL LIGHT AND BED ALARM ARE IN PLACE AND ON.
[2018-08-04 04:58] VITALS: BP 123/63
--- NOTE | 2018-08-04 04:59 | NUR ---
PT ASSISTED TO BSC AND BACK TO BED. BED ALARM SET OFF FROM PT ATTEMPTING TO AMBULATE. CALL LIGHT IS AT BEDSIDE, BUT PT DOES NOT REMEMBER TO CALL OR HOW TO CALL. PT WEIGHED AND MEDICATED ORDERS PROVIDE. CALL LIGHT W/IN REACH, BED ALARM ON AND LIGHTS TURNED DOWN.
[2018-08-04 05:46] LABS: CREATININE 1.1 mg/dL (0.5-1.0); MAGNESIUM 1.8 mg/dL (1.6-2.3); POTASSIUM 4.4 mmol/l (3.5-5.1)
[2018-08-04 05:49] LABS: HEMATOCRIT 34.2 % (37.0-47.0); IMMATURE GRANULOCYTES 0.5 % (0.0-5.0); MEAN CELL VOLUME 98.3 fL CALC (80.0-100.0); MEAN CORPUSCULAR HGB 28.7 pG CALC (26.0-32.0); MEAN CORPUSCULAR HGB CONC 29.2 g/L CALC (32.0-36.0); NEUT# 3.46 thou/uL (2.00-7.15); RED BLOOD COUNT 3.48 mill/uL (4.20-5.60); RED CELL DISTRI WIDTH 15.6 % (11.5-15.5)
[2018-08-04 08:20] VITALS: BP 151/79
--- NOTE | 2018-08-04 08:20 | NUR ---
ASSESSMENT IS COMPLTED. PT IS RESTING IN BED WITH NO DISTRESS NOTED. IV SITE IS FREE FROM REDNESS OR EDEMA. HR IS REG, PULSES ARE STRONG X4, ABD IS SOFT WITH ACTIVE BS. CONTINUE TO OSBERVE AND MONITOR.
--- NOTE | 2018-08-04 10:00 | NUR ---
GAVE MEDICATION FOR THE SPASM IN HER BACK . EXPLAINED TO PT AND FAMILY THAT IT TAKES A LITTLE TIME FOR IT TO WORK. VERBALIZED UNDERSTANDING.
--- NOTE | 2018-08-04 12:15 | NUR ---
PT IS IN THE CHAIR FOR LUNCH, WITH ASSISTANCE BY 2 STAFF, PT HAD A SPAPSM WHILE IN THE CHAIR, AND LEGS WERE FLAILING. WHEN IT CALMED DOWN THEN PT WAS ABLE TO SIT UP STRAIGHT IN THE CHAIR AND FINISH LUNCH, IV SITE IS FREE FROM REDNESS OR EDMA.
--- NOTE | 2018-08-04 13:45 | NUR ---
PT WENT TO HAVE A CT OD THE L AND T SPINE. UPON RETURN REPLACED BACK INTO BED, GAVE A SLIGHT BACK RUB ON THE LOWER BACK , PT STATED " THAT FEELS GOOD RIGHT THERE THAT IS WHERE I HAVE THE PAIN". CONTINUE TO OSBERVE AND MONITOR.
[2018-08-04 15:56] VITALS: BP 85/31
--- NOTE | 2018-08-04 16:00 | NUR ---
PT HAS BEEN RELAXING IN BED WITH NO DISTRESS NOTED. IV SITE IS FREE FROM REDNESS OR EDEMA.
--- NOTE | 2018-08-04 19:13 | NUR ---
BEDSIDE REPORT RECEIVED FROM WANDA MACIAS. PT ASLEEP IN BED WITH EYES CLOSED AND LIGHTLY SNORING. NO SIGNS OF DISTRESS. RESPIRATIONS EVEN AND UNLABORED ON ROOM AIR. SAFETY MEASURES IN PLACE INCLUDING BED ALARM. CALL LIGHT WITHIN REACH.
--- NOTE | 2018-08-04 19:45 | NUR ---
PT USED CALL LIGHT TO REQUEST REPOSITIONING. SEVERAL ITEMS FROM TABLE FOUND ON THE GROUND AND WATER PITCHER SPILLED. PT APOLOGIZED FOR THE ACCIDENT. ASSISTED TO BSC TO VOID; PT WAS INCONTENT OF URINE IN THE BED SHE WAS SITTING UP. HYGIENE GIVEN; BED LINENS CHANGED; HS CARE AND TEETH BRUSHED. REPOSITIONED BACK INTO BED AND PT QUICKLY FELL BACK ASLEEP. BLOOD PRESSURE 92/37; WILL HOLD METOPROLOL.
[2018-08-04 20:00] VITALS: BP 92/37
[2018-08-05 00:03] VITALS: BP 117/54
--- NOTE | 2018-08-05 00:06 | NUR ---
PT ASSISTED TO BSC AT THIS TIME X 2 PERSON ASSIST; VOIDED 500ML CLEAR YELLOW URINE. DENIES PAIN CURRENLTY. RESPIRATIONS EVEN AND UNLABORED ON ROOM AIR. IV SITE APPEARS HEALTHY AND FLUSHES. CALL LIGHT WITHIN REACH.
[2018-08-05 04:14] VITALS: BP 87/48
--- NOTE | 2018-08-05 04:18 | NUR ---
PT AWAKENED TO TACTILE STIMULI FOR VS AND LAB WORK; BLOOD PRESSURE LOW AT 87/48; ASYMPTOMATIC. REQUESTS A SNACK AT THIS TIME; SITTING UP EATING ICE CREAM. NO ACUTE CHANGES THROUGHOUT THE NIGHT. SAFETY MEASURES IN PLACE. CALL LIGHT WITHIN REACH.
[2018-08-05 05:02] LABS: HEMATOCRIT 31.7 % (37.0-47.0); HEMOGLOBIN 9.4 g/dl (12.0-16.0); IMMATURE GRANULOCYTES 0.4 % (0.0-5.0); MEAN CELL VOLUME 97.5 fL CALC (80.0-100.0); MEAN CORPUSCULAR HGB 28.9 pG CALC (26.0-32.0); MEAN CORPUSCULAR HGB CONC 29.7 g/L CALC (32.0-36.0); NEUT# 2.83 thou/uL (2.00-7.15); RED BLOOD COUNT 3.25 mill/uL (4.20-5.60); RED CELL DISTRI WIDTH 15.8 % (11.5-15.5)
[2018-08-05 05:14] LABS: CREATININE 1.3 mg/dL (0.5-1.0); POTASSIUM 4.2 mmol/l (3.5-5.1)
--- NOTE | 2018-08-05 06:15 | NUR ---
DR. CRANE NOTIFIED OF BLOOD PRESSURES THIS SHIFT AND NO BOWEL MOVEMENT X 4 DAYS. IV FLUIDS RESTARTED AND NEW MEDICATION ORDERS RECEIVED.
--- NOTE | 2018-08-05 07:38 | NUR ---
SHIFT CHANGE REPORT FROM CRYSTAL AUGIRRE SLEEPING IN RIGHT SIDE-LYING POSITION, BREATNING EVEN AND NON-LABORED, IVF INFUSING, CALL PADRON IN REACH.
[2018-08-05 08:20] VITALS: BP 108/42
--- NOTE | 2018-08-05 12:03 | NUR ---
ASSISTED TO BSC BY 2 STAFF, PT BORE WEIGHT AND NEEDED MINIMAL ASSISTANCE; HOWEVER, PT WAS UNABLE TO BEAR ANY WEIGHT AND BEDAME ALMOST FLACCID TO TRANSFER BACK TO BED, MAN POWER WAS NEEDED FOR THIS TRANSFER AND WAS OBTAINED.
--- NOTE | 2018-08-05 12:08 | NUR ---
DR CRANE AND MARGARET ROUNDED, DISCUSSED PLAN OF CARE.
[2018-08-05 16:15] VITALS: BP 116/43
--- NOTE | 2018-08-05 19:15 | NUR ---
REPORT RECEIVED FROM DAY NURSE. PT IS SITTING UPRIGHT IN BED W/LIGHTS AND TV ON. PT APPEARS CALM, IS GOING THROUGH PURSE. DENIES ANY PAIN OR DISTRESS AND IS ASKING FOR SNACKS. CALL LIGHT NEXT TO PT W/IN REACH.
[2018-08-05 20:00] VITALS: BP 114/51
--- NOTE | 2018-08-05 20:20 | NUR ---
PT MEDICATED ORDERS PROVIDE. SNACK PROVIDED AND SANDWICH PER PT REQUEST. PT LOC TO SELF AND LOCATION/SITUATION. PT ENCOURAGED TO MOVE SELF IN BED AND REPOSITION SELF. PT PLACED ON BEDPAN AND BACK OFF FOR URINATION. WILL CONTINUE TO MONITOR. BED ALARM ON AND LIGHTS TURNED LOW, TV ON. CALL LIGHT IN HAND
--- NOTE | 2018-08-06 04:04 | NUR ---
PT IV FLUIDS REPLENISHED, PT REPORTED THAT SHE IS WET, PT CLEANED OF INCONTINENT URINE AND BEDDING CHANGED. BED ALARM ON.
[2018-08-06 05:14] LABS: HEMATOCRIT 30.9 % (37.0-47.0); HEMOGLOBIN 9.1 g/dl (12.0-16.0); IMMATURE GRANULOCYTES 0.7 % (0.0-5.0); MEAN CELL VOLUME 99.4 fL CALC (80.0-100.0); MEAN CORPUSCULAR HGB 29.3 pG CALC (26.0-32.0); MEAN CORPUSCULAR HGB CONC 29.4 g/L CALC (32.0-36.0); NEUT# 3.67 thou/uL (2.00-7.15); RED BLOOD COUNT 3.11 mill/uL (4.20-5.60); RED CELL DISTRI WIDTH 15.9 % (11.5-15.5)
[2018-08-06 05:27] VITALS: BP 145/46
[2018-08-06 05:38] LABS: CREATININE 1.3 mg/dL (0.5-1.0); MAGNESIUM 1.9 mg/dL (1.6-2.3); POTASSIUM 4.4 mmol/l (3.5-5.1)
--- NOTE | 2018-08-06 05:46 | NUR ---
PT ASSISTED ONTO BEDPAN FOR URINATION AND ATTEMPT AT STOOL. SHE WAS CLEANED OF URINE AND BEDDING HAD TO BE CHANGED. NO BM AT THIS TIME. BED ALARM ON.
--- NOTE | 2018-08-06 07:28 | NUR ---
SHIFT CHANGE REPORT FROM CRYSTAL NAVARRO AWAKE AND ALERT, PLEASANT, NO C/O DISCOMFORT AT THIS TIME, WILL CONTINUE TO MONITOR.
[2018-08-06 10:55] VITALS: BP 157/59
--- NOTE | 2018-08-06 12:00 | NUR ---
ATE MEAL, ALL NEEDS ADDRESED.
--- NOTE | 2018-08-06 12:20 | NUR ---
PT WENT DOWN FOR BRAIN MRI, [facility] AL CALLED REPORTING PT WAS TABLE SCREAMING WITH ERRATIC MOVEMENTS OF EXTREMETIES AND ENTIRE BODY AND HE WAS UNABLE TO PERFORM PROCEDURE, SHERON ([facility]) AND DR. NASH NOTIFIED, DR NASH ADVISED TO CANCEL PROCEDURE. PT WAS TRANSPORTED BACK TO UNIT AND IS SETTLED IN BED AT THIS TIME.
[2018-08-06 15:29] VITALS: BP 132/65
--- NOTE | 2018-08-06 16:07 | NUR ---
C/O HEADACHE, CONCERN ADDRESSED, CALL PADRON IN REACH.
--- NOTE | 2018-08-06 19:30 | NUR ---
PATIENT RESTING IN BED AT THIS TIME-AWAKE ALERT AND ORIENTEDX3. COOPERATIVE AND PLEASANT AT THIS TIME. IV SITE TO LEFT FOREARM INTACT WITH IVF PATENT AND INFUSING AT 100CC/HR. SITE APPEARS HEALTHY AT THIS TIME. PATIENT WITH COMPLAINTS OF PAIN TO BLE-TOO EARLY FOR TYLENOL BUT WILL MEDICATED WITH ROPINIROLE ORDERED AT HS. BED ALARM IN PLACE FOR PATIENT SAFETY. CALL LIGHT IN REACH. WILL CONT TO MONITOR.
[2018-08-06 19:55] VITALS: BP 118/46
--- NOTE | 2018-08-07 | NUR ---
RESTING IN BED-ASKING FOR ICE CREAM AND IT WAS PROVIDED. PATIENT CONT TO BE PLEASANT. USING BEDPAN TO URINATE WITHOUT ANY DIFFICULTY. IVF PATENT AND INFUSING VIA LEFT FOREARM-SITE REMAINS HEALTHY. BED ALARM IN PLACE FOR PATIENT SAFETY. CALL LIGHT IN REACH. WILL CONT TO MONITOR.
--- NOTE | 2018-08-07 04:11 | NUR ---
PATIENT INCONT OF MODERATE AMT OF URINE. STATAES THAT SHE WAS SLEEPING AND WOKE UP WET. LINENS AND GOWN CHANGED. VERN-CARE DONE. REPOSITIONED IN BED. BED ALARM IN PLACE FOR PATIENT SAFETY. CALL LIGHT IN REACH. WILL CONT TO MONITOR.
[2018-08-07 05:22] VITALS: BP 120/30
--- NOTE | 2018-08-07 05:28 | NUR ---
PATIENT RESTING IN BED-C/O SEVERE LUZ MARIA LEG CRAMPING. MEDICATED WITH TYLENOL 650MG PO FOR PAIN. BED ALARM REMAINS IN PLACE FOR PATIENT SAFETY. CALL LIGHT IN REACH. WILL CONT TO MONITOR.
--- NOTE | 2018-08-07 07:00 | NUR ---
REPORT RECEIVED FROM TAQUERIA BERMEO;PT RESTING IN SEMI FOWLERS POSITION;INTRODUCED SELF TO PT AND POC DISCUSSED;PT APPEARS ALERT AND ORIENTED X3;RESPIRATIONS EVEN AND UNLABORED ON RA;PT DENIES ANY CURRENT NEEDS AND IS ENCOURAGED TO CALL FOR ASSISTANCE IF NEEDED;FALL PRECAUTIONS IN PLACE WITH BED ALARM ON FOR PT SAFETY;BED IN THE LOWEST POSITION WITH CALL LIGHT IN REACH;WILL CONTINUE TO MONITOR
--- NOTE | 2018-08-07 07:41 | NUR ---
08/06/18 Patient seen for continued functional training and assessment. She is fearful of standing. She did so with max assist of 2. Her motor planning is poor and she has a defintie fear of falling . She is confused and her cognition is impeding her physical progress. Once standing , she is able to do so with MICROBIOLOGY TECHNOLOGIST of 1 but was unable to take any steps. She is a good SNF candidate but is not safe to return home independently
--- NOTE | 2018-08-07 09:40 | NUR ---
PT OOB RESTING IN RECLINER;VS OBTAINED AND ASSESSMENT COMPLETED;PT ALERT AND ORIENTED X3;PT DENIES ANY CURRENT PAIN OR DISCOMFORTS AT THIS TIME, PAIN SCALE AND REPORTING RE-EDUCATED;RESPIRATIONS EVEN AND UNLABORED ON RA,CLEAR LUNG SOUNDS NOTED;ABDOMEN SOFT ON PALPATION AND ACTIVE IN ALL 4 QUADRANTS,PT WEDUCATED ON THE NEED FOR A STOOL SAMPLE AND VERBALIZES UNDERSTANDING;WEAK PEDAL PULSES;SCABBED AREA NOTED TO RIGHT FOOT, PHOTOGRAPHS IN CHART;PT ENCOURAGED TO CALL FOR ASSISTANCE IF NEEDED;BED ALARM ON FOR PT SAFETY;CALL LIGHT IN REACH;WILL CONTINUE TO MONITOR
[2018-08-07 09:43] VITALS: BP 170/81
[2018-08-07 12:00] VITALS: BP 186/93
--- NOTE | 2018-08-07 12:00 | NUR ---
PT OOB RESTING IN RECLINER;CURRENT BP 186/93 HR 89,PT DENIES ANY CURRENT PAIN;RESPIRATIONS EVEN AND UNLABORED ON RA; NOTIFIED OF ELEVATED BP;IV FLUIDS TO BE D/C AT THIS TIME PER MD;PT DENIES ANY ADDITIONAL NEEDS;INSTRUCTED TO CALL FOR ASSISTANCE IF NEEDED;FALL PRECAUTIONS IN PLACE WITH BED ALARM ON FOR SAFETY;CALL LIGHT IN REACH;WILL CONTINUE TO MONITOR
[2018-08-07] MEDS ORDERED: ACETAMIN325 MG PO (13:24)
[2018-08-07] MEDS ORDERED: QUETIAPINE FUMA25 MG PO (13:25)
[2018-08-07] MEDS ORDERED: GABAPENTIN100 MG PO (13:25)
--- NOTE | 2018-08-07 13:40 | NUR ---
Pt seen this pm for treatment. She was sitting in her chair, c/o leg spasm and L back pain. Pt performed AROM to BLEs in sitting with much encouragment for knee ext and ankle ROM. Pt stood x 2 with max assist of 2, 1 time to change brief and one time to ambulate approx 6' with max assist x2. She required much encouragment to stand tall, posture was flexed. Pt repositioned in chair with legs elevated, tray in front of her, call mejia in reach, alarm on. Pt for transfer this pm.
--- NOTE | 2018-08-07 13:47 | NUR ---
IV SITE REMOVED WITH CATHETER INTACT;PT VERBALIZES UNDERSTANDING OF TREATMENT PLAN.
--- NOTE | 2018-08-07 14:00 | NUR ---
Discharge instructions given. Patient verbalizes understanding of same. Discharged in stable condition via Wheel[facility] to [facility] with *Other. All belongings sent with pt. Pt transported to [facility] via 's transport in stable condition.
--- NOTE | 2018-08-07 14:21 | NUR ---
REPORT CALLED TO TAQUERIA MENDOZA AT [facility]
== END 2018-08-07 13:58 | DRG 917 ==
LOC: ED 11:53 → ED-I 15:43 → ED 16:04 → MS2 16:05
PROVIDERS: Emergency Medicine; Nurse Practitioner Family; ADMIT Internal Medicine Nephrology; ATTEND Internal Medicine Nephrology
DX: T43.501A Poisoning by unspecified antipsychotics and neuroleptics, accidental (unintentional), initial encounter (principal); G92 Toxic encephalopathy; F23 Brief psychotic disorder; N17.9 Acute kidney failure, unspecified; B02.29 Other postherpetic nervous system involvement; R44.1 Visual hallucinations; I70.213 Atherosclerosis of native arteries of extremities with intermittent claudication, bilateral legs; G25.79 Other drug induced movement disorders; I12.9 Hypertensive chronic kidney disease with stage 1 through stage 4 chronic kidney disease, or unspecified chronic kidney disease; N18.3 Chronic kidney disease, stage 3 (moderate); J44.9 Chronic obstructive pulmonary disease, unspecified; E03.9 Hypothyroidism, unspecified; F32.9 Major depressive disorder, single episode, unspecified; F41.9 Anxiety disorder, unspecified; I95.9 Hypotension, unspecified; F03.90 Unspecified dementia, unspecified severity, without behavioral disturbance, psychotic disturbance, mood disturbance, and anxiety; I25.10 Atherosclerotic heart disease of native coronary artery without angina pectoris; E86.0 Dehydration; E78.5 Hyperlipidemia, unspecified; Z95.3 Presence of xenogenic heart valve; Z79.02 Long term (current) use of antithrombotics/antiplatelets
CPT/HCPCS: G0378; J2060; S0166

== ENCOUNTER 2018-12-09 19:38 | Inpatient (IN) | payer MEDICARE ==
[~2018-12-09] VITALS: Ht 157.5 cm; Wt 70.7 kg
[~2018-12-09 19:38] MED LIST changes: +ACETAMIN325 MG PO; +CLOPIDOGREL75 MG PO; +DULOXETINE HCL60 MG PO; +GABAPENTIN100 MG PO; +QUETIAPINE FUMA25 MG PO; +ROPINIROLE1 MG PO; +SPIRONOLACTONE25 MG PO; +[UNRECOGNIZED DRUG - CODE] PO
[2018-12-09 23:05] VITALS: BP 90/42
[2018-12-10 04:44] LABS: HEMATOCRIT 32.1 % (37.0-47.0); HEMOGLOBIN 9.3 g/dl (12.0-16.0); IMMATURE GRANULOCYTES 0.2 % (0.0-5.0); MEAN CORPUSCULAR HGB 26.4 pG CALC (26.0-32.0); NEUT# 3.55 thou/uL (2.00-7.15); RED BLOOD COUNT 3.52 mill/uL (4.20-5.60); RED CELL DISTRI WIDTH 14.4 % (11.5-15.5)
[2018-12-10 04:46] LABS: MEAN CELL VOLUME 91.2 fL CALC (80.0-100.0)
[2018-12-10 05:18] VITALS: BP 109/59
[2018-12-10 05:26] LABS: ALBUMIN 3.2 g/dL (3.2-5.0); ALKALINE PHOSPHATASE 120 u/l (38-126); ANION GAP 11 (6-22 (CALC)); BILIRUBIN, TOTAL 0.3 mg/dL (0.0-1.4); BUN 26 mg/dL (8-23); BUN/CREATININE RATIO 25 (12-20 (CALC)); CARBON DIOXIDE 29 mmol/l (22-30); CHLORIDE 106 mmol/l (95-108); GFR 53 ML/MIN (>=60 (CALC)); GFR FOR AFR.AMER. > 60 ML/MIN (>=60 (CALC)); POTASSIUM 4.3 mmol/l (3.5-5.1); SODIUM 141 mmol/l (137-146); TOTAL PROTEIN 5.9 g/dL (6.3-8.2)
[2018-12-10 05:31] LABS: SGOT/AST 20 u/l (9-36)
[2018-12-10 09:48] VITALS: BP 110/67
[2018-12-10 11:21] VITALS: BP 120/80
[2018-12-10 16:33] VITALS: BP 159/65
[2018-12-10 20:56] VITALS: BP 104/53
[2018-12-10 23:54] VITALS: BP 132/59
[2018-12-11 05:18] VITALS: BP 113/59
[2018-12-11 05:38] LABS: ALBUMIN 3.2 g/dL (3.2-5.0); ALKALINE PHOSPHATASE 121 u/l (38-126); AMYLASE 34 u/l (30-110); ANION GAP 10 (6-22 (CALC)); BILIRUBIN, TOTAL 0.3 mg/dL (0.0-1.4); BUN 24 mg/dL (8-23); BUN/CREATININE RATIO 28 (12-20 (CALC)); CARBON DIOXIDE 30 mmol/l (22-30); CHLORIDE 105 mmol/l (95-108); CREATININE 0.9 mg/dL (0.5-1.0); GFR 60 ML/MIN (>=60 (CALC)); GFR FOR AFR.AMER. > 60 ML/MIN (>=60 (CALC)); LIPASE 67 u/l (23-300); MAGNESIUM 1.6 mg/dL (1.6-2.3); POTASSIUM 4.5 mmol/l (3.5-5.1); SGOT/AST 20 u/l (9-36); SODIUM 141 mmol/l (137-146)
[2018-12-11 05:42] LABS: HEMATOCRIT 32.2 % (37.0-47.0); HEMOGLOBIN 9.3 g/dl (12.0-16.0); IMMATURE GRANULOCYTES 0.2 % (0.0-5.0); MEAN CELL VOLUME 92.8 fL CALC (80.0-100.0); MEAN CORPUSCULAR HGB 26.8 pG CALC (26.0-32.0); MEAN CORPUSCULAR HGB CONC 28.9 g/L CALC (32.0-36.0); NEUT# 2.8 thou/uL (2.00-7.15); RED BLOOD COUNT 3.47 mill/uL (4.20-5.60); RED CELL DISTRI WIDTH 14.4 % (11.5-15.5)
[2018-12-11 08:16] VITALS: BP 117/55
[2018-12-11 11:27] VITALS: BP 100/40
[2018-12-11 15:18] VITALS: BP 112/59
[2018-12-11 19:12] VITALS: BP 127/57
[2018-12-12] VITALS (8 sets, daily range): BP systolic 87–153; BP diastolic 46–91
[2018-12-12 04:59] LABS: HEMATOCRIT 34.5 % (37.0-47.0); IMMATURE GRANULOCYTES 0.3 % (0.0-5.0); MEAN CELL VOLUME 92.2 fL CALC (80.0-100.0); MEAN CORPUSCULAR HGB 26.7 pG CALC (26.0-32.0); NEUT# 3.45 thou/uL (2.00-7.15); RED BLOOD COUNT 3.74 mill/uL (4.20-5.60); RED CELL DISTRI WIDTH 14.3 % (11.5-15.5)
[2018-12-12 05:19] LABS: ALBUMIN 3.5 g/dL (3.2-5.0); ALKALINE PHOSPHATASE 119 u/l (38-126); ANION GAP 11 (6-22 (CALC)); BILIRUBIN, TOTAL 0.4 mg/dL (0.0-1.4); BUN 27 mg/dL (8-23); BUN/CREATININE RATIO 28 (12-20 (CALC)); CARBON DIOXIDE 33 mmol/l (22-30); CHLORIDE 103 mmol/l (95-108); GFR 53 ML/MIN (>=60 (CALC)); GFR FOR AFR.AMER. > 60 ML/MIN (>=60 (CALC)); MAGNESIUM 1.6 mg/dL (1.6-2.3); POTASSIUM 4.8 mmol/l (3.5-5.1); SGOT/AST 19 u/l (9-36); SODIUM 142 mmol/l (137-146); TOTAL PROTEIN 6.4 g/dL (6.3-8.2)
[2018-12-13 04:12] VITALS: BP 120/46
[2018-12-13 05:28] LABS: HEMATOCRIT 33.7 % (37.0-47.0); HEMOGLOBIN 9.7 g/dl (12.0-16.0); MEAN CELL VOLUME 92.1 fL CALC (80.0-100.0); MEAN CORPUSCULAR HGB 26.5 pG CALC (26.0-32.0); MEAN CORPUSCULAR HGB CONC 28.8 g/L CALC (32.0-36.0); NEUT# 3.65 thou/uL (2.00-7.15); RED BLOOD COUNT 3.66 mill/uL (4.20-5.60); RED CELL DISTRI WIDTH 14.1 % (11.5-15.5)
[2018-12-13 05:49] LABS: ALBUMIN 3.2 g/dL (3.2-5.0); ALKALINE PHOSPHATASE 123 u/l (38-126); ANION GAP 11 (6-22 (CALC)); BILIRUBIN, TOTAL 0.5 mg/dL (0.0-1.4); BUN 24 mg/dL (8-23); BUN/CREATININE RATIO 28 (12-20 (CALC)); CARBON DIOXIDE 30 mmol/l (22-30); CHLORIDE 103 mmol/l (95-108); CREATININE 0.9 mg/dL (0.5-1.0); GFR 60 ML/MIN (>=60 (CALC)); GFR FOR AFR.AMER. > 60 ML/MIN (>=60 (CALC)); MAGNESIUM 1.6 mg/dL (1.6-2.3); POTASSIUM 4.9 mmol/l (3.5-5.1); SGOT/AST 18 u/l (9-36); SODIUM 140 mmol/l (137-146); TOTAL PROTEIN 5.9 g/dL (6.3-8.2)
[2018-12-13 09:50] VITALS: BP 109/59
[2018-12-13 11:47] VITALS: BP 149/76
[2018-12-13] MEDS ORDERED: LEVOTHYROXIN200 MCG PO (14:28)
[2018-12-13] MEDS ORDERED: TYLENOL325 MG PO (14:31)
[2018-12-13] MEDS ORDERED: DECARA50000 UNIT PO (14:32)
[2018-12-13] MEDS ORDERED: DONEPEZIL5 MG PO (14:33)
[2018-12-13] MEDS ORDERED: COLACE100 MG PO (14:33)
[2018-12-13] MEDS ORDERED: GABAPENTIN100 MG PO ×2 (14:34→14:35)
[2018-12-13] MEDS ORDERED: HYDROXYZ HCL25 MG PO (14:35)
[2018-12-13] MEDS ORDERED: DUONEB IN (14:36)
[2018-12-13] MEDS ORDERED: MELATONIN CR3 MG PO (14:37)
[2018-12-13] MEDS ORDERED: NORCO1 TA1 PO (14:37)
[2018-12-13 15:38] VITALS: BP 104/50
[2018-12-13 19:00] VITALS: BP 112/61
[2018-12-14] VITALS: BP 125/63
[2018-12-14 04:00] VITALS: BP 105/61
[2018-12-14 09:43] VITALS: BP 103/52
[2018-12-14 11:10] VITALS: BP 110/58
[2018-12-14 15:20] VITALS: BP 120/60
[2018-12-14] MEDS ORDERED: Levaquin PO (15:36)
== END 2018-12-14 16:26 | DRG 194 ==
LOC: MS2 19:38
PROVIDERS: Internal Medicine Nephrology; ADMIT Internal Medicine; ATTEND Internal Medicine
DX: J18.9 Pneumonia, unspecified organism (principal); J44.0 Chronic obstructive pulmonary disease with (acute) lower respiratory infection; N17.9 Acute kidney failure, unspecified; I12.9 Hypertensive chronic kidney disease with stage 1 through stage 4 chronic kidney disease, or unspecified chronic kidney disease; N18.3 Chronic kidney disease, stage 3 (moderate); D63.1 Anemia in chronic kidney disease; I25.119 Atherosclerotic heart disease of native coronary artery with unspecified angina pectoris; E03.9 Hypothyroidism, unspecified; F41.1 Generalized anxiety disorder; F32.9 Major depressive disorder, single episode, unspecified; E78.5 Hyperlipidemia, unspecified; I73.9 Peripheral vascular disease, unspecified; G62.9 Polyneuropathy, unspecified; M19.90 Unspecified osteoarthritis, unspecified site; Y95 Nosocomial condition; Z79.02 Long term (current) use of antithrombotics/antiplatelets; Z95.3 Presence of xenogenic heart valve
CPT/HCPCS: J0692

== ENCOUNTER 2019-07-02 16:58 | Inpatient (IN) | payer MEDICARE, OTHER ==
[~2019-07-02] VITALS: Ht 157.5 cm; Wt 69.5 kg
--- NOTE | 2019-07-02 10:25 | NUR ---
RECEIVED REPORT FROM ER NURSE RACHID, PATIENT TRANSPORTED VIA BED, HOKED TO O2 @ 2LPM VIA NC, NOTED TO HAVE EXERTIONAL DYSPNEA, ORIENTED TO ROOM AND CALL LIGHT SYSTEM.
[~2019-07-02 16:58] MED LIST changes: +COLACE100 MG PO; +DECARA50000 UNIT PO; +DONEPEZIL5 MG PO; +DUONEB IN; +HYDROXYZ HCL25 MG PO; +LEVOTHYROXIN200 MCG PO; +Levaquin PO; +MELATONIN CR3 MG PO; +NORCO1 TA1 PO; +TYLENOL325 MG PO
--- NOTE | 2019-07-02 17:09 | NUR ---
PT TRIAGED AND PLACED BACK IN WAITING ROOM ON NC 2L FOR COMFROT, INSTRUCTED PT AND DAUGHTER TO NOTIFY STAFF IF ANY CHANGES, OR WORSENIGN IN CONDITION, PT AND DAUGHTER BOTH GIVE VERBALIZATION OF AGREEANCE AND UNDERSTANDING
--- NOTE | 2019-07-02 18:17 | NUR ---
Pt to room # 6 via W/C
[2019-07-02 18:48] LABS: IMMATURE GRANULOCYTES 0.4 % (0.0-5.0); MEAN CELL VOLUME 93.6 fL CALC (80.0-100.0); MEAN CORPUSCULAR HGB 27.9 pG CALC (26.0-32.0); MEAN CORPUSCULAR HGB CONC 29.8 g/L CALC (32.0-36.0); NEUT# 4.52 thou/uL (2.00-7.15); RED BLOOD COUNT 4.69 mill/uL (4.20-5.60)
[2019-07-02 18:49] LABS: HEMATOCRIT 43.9 % (37.0-47.0); HEMOGLOBIN 13.1 g/dl (12.0-16.0)
[2019-07-02 19:02] LABS: ALKALINE PHOSPHATASE 120 u/l (38-126); ANION GAP 14 (6-22 (CALC)); BILIRUBIN, TOTAL 0.6 mg/dL (0.0-1.4); BUN 29 mg/dL (8-23); BUN/CREATININE RATIO 30 (12-20 (CALC)); CARBON DIOXIDE 26 mmol/l (22-30); CHLORIDE 103 mmol/l (95-108); GFR 53 ML/MIN (>=60 (CALC)); GFR FOR AFR.AMER. > 60 ML/MIN (>=60 (CALC)); POTASSIUM 4.8 mmol/l (3.5-5.1); SODIUM 138 mmol/l (137-146)
[2019-07-02 19:06] LABS: ALBUMIN 4.5 g/dL (3.2-5.0); SGOT/AST 47 u/l (9-36); TOTAL PROTEIN 8.2 g/dL (6.3-8.2)
--- NOTE | 2019-07-02 19:10 | NUR ---
REPORT RECEIVED. CARE ASSUMED.
--- NOTE | 2019-07-02 19:22 | NUR ---
RESPIRATORY AT BEDSIDE FOR ADDITIONAL NEB TREATMENT.
--- NOTE | 2019-07-02 19:32 | NUR ---
PATIENT MEDICATED WITH STEROID ORDERED. PATIENT TOLERATED NEB WELL. AWAITING ALL RESULTS AND PLAN OF CARE.
--- NOTE | 2019-07-02 20:31 | NUR ---
REPORT ATTEMPTED. NO ANSWER AT NURSE'S STATION, WILL TRY AGAIN LATER.
--- NOTE | 2019-07-02 20:56 | NUR ---
SECOND ASTTEMPT AT REPORT. NURSE IS UNAVAILABLE. WILL RETURN CALL.
--- NOTE | 2019-07-02 21:23 | NUR ---
REPORT CALLED TO SHAUNA. PATIENT READIED FOR TRANSPORT TO FLOOR.
--- NOTE | 2019-07-02 22:10 | NUR ---
PATIENT DAUGHTER ARRIVES AT BEDSIDE. UPDATED ON PLAN OF CARE AND PENDING TRANSPORT. BROUGHT IN MEDS FROM HOME TO COMPLETED MEDICATION REONCILIATION
[2019-07-02] MEDS ORDERED: PRAVASTATIN40 MG PO (22:11)
[2019-07-02] MEDS ORDERED: ZPAK PO (22:12)
[2019-07-02] MEDS ORDERED: VITAMIN D35000 UNIT PO (22:13)
[2019-07-02] MEDS ORDERED: CLOPIDOGREL75 MG PO (22:14)
--- NOTE | 2019-07-02 22:22 | NUR ---
KARO TO FLOOR ON OXYGEN VIA WHEELCHAIR. PATIENT DAUGHT TOOK HOME MEDS BACK HOME
[2019-07-02 22:25] VITALS: BP 123/43
--- NOTE | 2019-07-02 22:25 | NUR ---
RECEIVED REPORT FROM NURSE RASHID PATIENT TRANSPORTED VIA BED, HOOKED TO O2 @ 2LPM VIA NC, ASSISTED IN BED AND ORIENTED TO ROOM AND CALL LIGHT SYSTEM.
--- NOTE | 2019-07-02 23:23 | NUR ---
SPOKED TO DR. AYALA, WITH ORDER TO DISCONTINUE VENTOLIN INHALER AND SHIFT TO VENTOLIN NEBULE EVERY 4 HOURS PRN FOR sob.
--- NOTE | 2019-07-03 | NUR ---
PATIENT APPEARS TO BE SLEEPING WITH EYES CLOSED EVEN UNLABORED BREATHING CALL LIGHT AT REACH.
--- NOTE | 2019-07-03 02:20 | NUR ---
RECIVED REPORT FROM NURSE RASHID, PATIENT TRANSPORTED VIA BED, HOOKED TO O2 @ 2LPM NC, NOTED TO HAVE EXERTIONAL DYSPNEA, ASSISTED TO BE AND ORIENTED TO ROOM AND CALL LIGHT SYSTEM.
[2019-07-03 03:57] LABS: URINE BILIRUBIN - DIPSTICK NEGATIVE (NEGATIVE); URINE BLOOD DIPSTICK TRACE-INTACT (NEGATIVE); URINE COLOR YELLOW; URINE GLUCOSE - DIPSTICK NEGATIVE (NEGATIVE); URINE KETONE NEGATIVE (NEGATIVE); URINE LEUK ESTERASE NEGATIVE (NEGATIVE); URINE NITRITE - DIPSTICK NEGATIVE (Negative); URINE PROTEIN - DIPSTICK TRACE mg/dL (NEG-TRACE); URINE SPECIFIC GRAVITY >=1.030; URINE UROBILINOGEN - DIPSTICK 0.2 E.U./dL (0.2)
[2019-07-03 04:39] VITALS: BP 105/51
--- NOTE | 2019-07-03 05:06 | NUR ---
PATIENT WAS C/O PAIN ON LOWERBACK PRN LORTAB GIVEN WAS EFFECTIVE PS DECREASED TO 4/10.CURRENTLY RESTING IN BED, REMAINS ON O2 @ 2LPM VIA NC EVEN UNLABORED BREATHING AT THIS TIME, CALL LIGHT AT REACH.
[2019-07-03 08:10] VITALS: BP 137/49
--- NOTE | 2019-07-03 08:20 | NUR ---
ASSESSMENT IS COMPLETED: IV SITE IS FREE FROM REDNESS OR EDEMA. PT IS ALERT AND ORIENTED. BREATH SOUNDS ARE COARSE BILATERALLY, O2 @ 2 LITERS WITH NC. HR IS REG,PULSES ARE STRONG X4, ABD IS SOFT WITH ACTIVE BS. TELE MONITOR IN PLACE. CONTINUE TO OSBERVE AND MONITOR.
--- NOTE | 2019-07-03 12:27 | NUR ---
DR. GODINEZ AND GODFREY DELGADO IN TO VISIT WITH PT.
--- NOTE | 2019-07-03 12:45 | NUR ---
PT HAS HAD WEEPING MOMENTS. C/O " UNABLE TO BREATHE' MEDICATION GIVEN AND PT ADJUSTED TO HER BED, CONTINUE TO OSBERVE AND MONITOR.
--- NOTE | 2019-07-03 13:00 | NUR ---
ENCOURAGED PT TO USE THE BSC TO ASSIST WITH EXPANDING HER LUNGS AND NOT STAYING IN BED.
[2019-07-03 15:35] VITALS: BP 120/50
--- NOTE | 2019-07-03 16:14 | NUR ---
PT HAVING A CT SCAN OF THE THORAX
--- NOTE | 2019-07-03 16:30 | NUR ---
PT IS BACK IN TO BED USED THE BSC. AND ABLE TO AMBULATE TO THE BED. FRIEND IN THE ROOM. IV SITE IS FREE FROM REDNESS OR EDEMA. CONTINUE TO OSBERVE AND MONITOR.
--- NOTE | 2019-07-03 18:06 | NUR ---
PT C/O MID CHEST PRESSURE AND PAIN GOING TO THE BACK. VS OBTAINED: 97.5, 125/47, HR IS 123 O2 SATS 94%. PT STATES" IT HAPPENS THEN QUITS " INFORMED DR. GODINEZ RE: C/O VOICED.
[2019-07-03 18:10] VITALS: BP 125/47
--- NOTE | 2019-07-03 18:45 | NUR ---
INFORMING DR GODINEZ RE: EKG'S ON THE PT. GAVE MEDICATION ORDERED NEEDED.
[2019-07-03 19:30] VITALS: BP 128/67
--- NOTE | 2019-07-03 20:05 | NUR ---
PT. IS ANXIOUS AND C/O BACK,CHEST, AND BUTTOCK PAIN, MEDICATED WITH ORDERED LORTAB; RELAXATION TECHNIQUES IMPLEMENTED; WILL REASSESS; UPDATED ON POC; TELEMETRY IN PLACE. IV SITE PATENT AND INFUSING ORDERED IVF AT [facility]. PO FLUIDS OFFERED. CALL LIGHT IS IN REACH. WILL CONTINUE TO MONITOR.
--- NOTE | 2019-07-03 21:50 | NUR ---
SPOKE WITH DR. MARTIN AND NOTIFIED HIM OF PREVIOUS EPISODE OF CP AND ANXIETY WITH NEGATIVE TROPONIN AND OF PT. REQUESTING SOMETHING TO HELP HER TO SLEEP AND/OR RELAX; NEW ORDERS RECEIVED AND TO BE CARRIED OUT.
--- NOTE | 2019-07-03 22:14 | NUR ---
MEDICATED WITH ORDERED ONE TIME DOSE OF XANAX TO ASSIST TO REST AND RELAX PER ORDER. DENIES FURTHER NEEDS. CALL LIGHT IS IN REACH.
[2019-07-03 23:43] VITALS: BP 94/51
--- NOTE | 2019-07-03 23:43 | NUR ---
PT. REPROTS ANXIETY IS A LITTLE LESS NOW. VS OBTAINED. NO DISTRESS NOTED; DENIES NEEDS. CALL LIGHT IS IN REACH.
[2019-07-04] VITALS (13 sets, daily range): BP systolic 98–141; BP diastolic 48–60
--- NOTE | 2019-07-04 02:00 | NUR ---
RESTING IN BED WITH EYES CLOSED; RESP. EVEN AND UNLABORED. CALL LIGHT IS IN REACH.
--- NOTE | 2019-07-04 03:02 | NUR ---
PT. C/O CARREON AND BACK PAIN ALONG WITH COUGH ; MEDICATED WITH ORDERED LORTAB AND ROBITUSSIN; WILL REASSESS.WARM TEA GIVEN WITH HONEY AND LEMON. DENIES FURTHER NEEDS. VSS. CALL LIGHT IS IN REACH.
[2019-07-04 04:56] LABS: IMMATURE GRANULOCYTES 0.5 % (0.0-5.0); MEAN CORPUSCULAR HGB 27.8 pG CALC (26.0-32.0); MEAN CORPUSCULAR HGB CONC 29.3 g/L CALC (32.0-36.0); NEUT# 12.46 thou/uL (2.00-7.15); RED BLOOD COUNT 3.99 mill/uL (4.20-5.60); RED CELL DISTRI WIDTH 14.7 % (11.5-15.5)
[2019-07-04 05:10] LABS: HEMOGLOBIN 11.1 g/dl (12.0-16.0)
[2019-07-04 05:11] LABS: HEMATOCRIT 37.9 % (37.0-47.0)
[2019-07-04 05:21] LABS: CREATININE 1.1 mg/dL (0.5-1.0); MAGNESIUM 1.4 mg/dL (1.6-2.3)
--- NOTE | 2019-07-04 05:27 | NUR ---
SCHED MEDS GIVEN. DENIES NEEDS/PAIN. PO FLUIDS OFFERED. CALL LIGHT IS IN REACH. WILL CONTINUE TO MONITOR.
[2019-07-04 05:36] LABS: POTASSIUM 5.5 mmol/l (3.5-5.1)
--- NOTE | 2019-07-04 07:15 | NUR ---
PT RESTING IN BED AWAKE. PT IS ALERT AND ORIENTED X3. SHIFT ASSESSMENT COMLPLETED AT THIS TIME. IV PATENT X1. PATIENT IS VERY ANXIOUS. WILL MEDICATE WHEN AVAILABLE. CALL LIGHT IN REACH. WILL CONTINEU TO ONITOR.
--- NOTE | 2019-07-04 08:30 | NUR ---
pt with complaints of chest pain states that her chest is "caving in" Interface Control Officer Herlinda notified and immeadiately to bedside.
--- NOTE | 2019-07-04 09:15 | NUR ---
PT COUGHING AND CONTINUES TO BE ANXIOUS PT MEDICATED PER MAR.
--- NOTE | 2019-07-04 10:00 | NUR ---
DR MORA AND GODFREY ROBLES AT BEDSIDE A TTHIS ITME
--- NOTE | 2019-07-04 10:41 | NUR ---
I SPOKE WITH LOIS FROM DR. NADIR STRANGE OFFICE @1036 AM. THE CONSULTATION IS FOR TACHYCARDIA. THE NUBER I CALLED WAS #[phone].
--- NOTE | 2019-07-04 12:00 | NUR ---
PT SITTING UP IN BED. RESP ARE EVEN AND UNLABORED. NO DISTRRESS NOTED. CALL LIGHT IN REACH. WILL CONTINEU TO MONITOR.
--- NOTE | 2019-07-04 13:15 | NUR ---
RAFAEL ROBLES AT BEDSIDE AT THIS TIME
--- NOTE | 2019-07-04 14:10 | NUR ---
SENIOR OFFICER AT BEDSIDE AT THIS TIME
--- NOTE | 2019-07-04 14:21 | NUR ---
RECEIVED ORDERS THAT PATIENT SHOULD BE TRANSFERRED TO ICU. WILL TRANSFER PATIENT AFTER COMPLETION OF ECHO.
--- NOTE | 2019-07-04 15:00 | NUR ---
PT TO ICU VIA BED. ALL BELONGINGS SENT WITH PATIENT. PT TOLERATED TRANSFER WELL.
--- NOTE | 2019-07-04 15:02 | NUR ---
PT ARRIVED TO ICU2 BY BED WITH TELE & IVF & O2 WITH RN. RECVD BEDSIDE REPORT FROM TAQUERIA MCADAMS
--- NOTE | 2019-07-04 15:52 | NUR ---
PT IS MANIPULATIVE WHILE INTERACTING WITH STAFF. THIS RN ASSURED PT SHE COULD REPOSITION SELF IN BED, BUT NEEDS TO CALL STAFF BEFORE EXITING BED. BED ALARM SET. PT REPOSITIONED SELF IN BED, REFUSED BLANKETS STATING SHE WAS FINE. PT STATES SHE LIVES WITH HER DAUGHTER & CHERYL AND OTHER DAUGHTER LIVES DOWN THE STREET. PT WAS ABLE TO CORRECTLY STATE HER NAME, , & AGE. PT STATES SHE IS ORIGIANALLY FROM [place]. PT EDUCATED ON NEW MEDICATIONS. PT ASKED ABOUT GETTING A STOOL SOFTENER, SHE WAS INFORMED OF CURRECT STOOL SOFTNER BID. 2ND IV SITE ESTABLISHED TO RIGHT A/C & LABELED. CALLBELL W/IN REACH. PT SHOWN HOW TO USE BED CONTROLS & CALLLIGHT.
--- NOTE | 2019-07-04 16:10 | NUR ---
UPON ENTERING ROOM DURING ROUNDS, PT LAYING IN BED, ON BACK, WITH EYES CLOSED. PT PEAKED ONE EYE OPEN THEN QUICKLY CLOSED IT AGAIN. WILL CONTINUE TO MONITOR.
--- NOTE | 2019-07-04 16:39 | NUR ---
FEMALE VISITOR @BEDSIDE FUSSING OVER PT, WALKING AROUND BED, MAKING SURE EVERYTHING IS PERFECT FOR PT.
--- NOTE | 2019-07-04 17:20 | NUR ---
PTS DAUGHTER VERIFIED OUR CONTACT INFORMATION FOR HER WAS GOOD. DISCUSSED MEDICATIONS PT IS RECVING THIS ADMISSION. DISCUSSED WHY PT WAS MOVED TO ICU & CARDIAC CONCERNS. PT REPOSITIONED HERSELF HIGHER IN BED, SITTING UP IN BED, EATING DINNER. DAUGHTER HAD TO CUT UP PTS FOOD FOR HER, DIET CHANGED TO MECHANICAL SOFT TO HELP PT ON FUTURE MEALS.
--- NOTE | 2019-07-04 17:27 | NUR ---
PT ASSISTED UP TO BSC FOR URINATION.
--- NOTE | 2019-07-04 18:16 | NUR ---
PT REQUEST PUREWICK AFTER GETTING UP TO BSC. PUREWICK PLACED TO LCS. PT REMINDED ON USE. PT ALSO REQUEST SOMETHING FOR ANXIETY & THE ITCHING ON HER BACK. BARRIER CREAM APPLIED TO ENTIRE LEFT SIDE OF BACK & MEDICATED FOR ITCHING & ANXIETY. PT TEARFUL, STATING SHE IS VERY GRATEFUL FOR ALL OUR CARE.
--- NOTE | 2019-07-04 19:00 | NUR ---
AT BEGINNING OF SHIFT, PATIENT BECAME ANXIOUS AND REQUESTED MEDICATION TO HELP HER CALM. SHE STARTED TO SHAKE IN HER UPPER EXTREMITIES, I ASKED HER IF SHE WAS COLD AND SHE STATED, "NO, I'M JUST NERVOUS." AFTER SOME REASSURANCE SHE WAS ABLE TO CALM DOWN. SHE PULLED HERSELF UP WITH VERBAL CUEING, WAS ABLE TO TOLERATE HER ANXIETY AND PAIN MEDICATION, HAD A HEADACHE RATED IT A 5/10. SHE HAD ALSO REQUESTED TO BRUSH HER TEETH, TABLE WITH ORAL CARE SUPPLIES PROVIDED AND HOB 90 DEGREES. HEAD TO TOE NURSING ASSESSMENT COMPLETED, SEE CHARTING. SHE HAS AN OCASSIONAL SENIOR PATROL AGENT COUGH. SHE SATS 98% ON 2L/MIN NC H. SHE IS SR ON TELEMETRY. AFEBRILE. NKEW IV HAD TO BE STARTED ON HER L-H FOR WHICH SHE BECAME UPSET AND WAS YELLING ALOUD, "I CAN'T BE PAIN FREE FOR AT LEAST TWO MINUTES." PATIENT WAS REASSURED AND WAS EDUCATED ON NEED AV AN IV TO BE STARTED, AFTER CONVERSATING SHE WAS ABLE TO UNDERSTAND, AGREED AND COOPERATED. PATIENT ALSO HAS GOWN UNTIED AND CLIPS UNDONE ON HER ARMS PER HER REQUEST SHE DOES NOT WANT ANY CORDS OVER HER CHEST OR ARMS, SHE STATES,"I DON'T WANT TO FEEL LIKE I'M IMPRISONED." AMIODARONE DRIP INFUSING AT 1 MG/MIN OR 33.3 ML/HR WITH BACK UP NS INFUSING AT KVO. RAC 22 G IV INTACT AND FLSUHING PROPERLY. PUREWICK IS INTACT AND AT LCS. CALL LIGHT WITHIN REACH. POC FOR TONIGHT DISCUSSED. WILL CONTINUE TO MONITOR.
--- NOTE | 2019-07-04 20:45 | NUR ---
PATIENT WITH HOB NEAR 90 DEGREES REQUESTS FOR HEAD TO BE LOWERED DOWN, ALSO EDUCATED HER ON HOW TO USE THE BED CONTROL FOR WHEN SHE WOULD LIKE TO RAISE OR LOWER HER HEAD OR FEET. ALSO, C/O L-H IV I STARTED EARLIER, I HAVE FLUSHED IT AND IT FLUSHES PROPERLY WELL THERE IS NO REDNESS OR TENDERNESS NOTED. WILL CONTINUE TO MONITOR.
--- NOTE | 2019-07-04 21:30 | NUR ---
PATIENT IS ABLE TO TOLERATE HER BEDTIME MEDICATIONS WITH PUDDING. HOB 90 DEGREES AT THIS MOMENT. NO ACUTE DISTRESS SHOWN.
--- NOTE | 2019-07-04 21:39 | NUR ---
PATIENT WAS ASSITED WITH LAYING HER ON HER R-SIDE, SHE ALSO REQUESTED FOR BABY POWDER TO BE APPLIED ON HER BACK. CALL LIGHT WITHIN REACH. WILL CONTINUE TO MONITOR.
--- NOTE | 2019-07-04 23:35 | NUR ---
PUREWICK LEAKED ONTO PAD, NEW BED PAD PLACED. PUREWICK INTACT AT LCS. PATIENT ALSO ASSISTED WITH REPOSITIONING. NO OTHER NEEDS AT THIS TIME. CALL LIGHT WITHIN REACH.
[2019-07-05] VITALS (20 sets, daily range): BP systolic 100–168; BP diastolic 50–68
--- NOTE | 2019-07-05 00:17 | NUR ---
PATIENT LAYS SUPINE. IS AWAKE. NO COMPLAINTS. NO ACUTE DISTRESS NOTED. NO COMPLAINTS OF PAIN OR DISCOMFORT AT THIS TIME. SR ON TELEMETRY, AFEBRILE. SATS 97% ON 2L/MIN NC H. CALL LIGHT WITHIN REACH. WILL CONTINUE TO MONITOR.
--- NOTE | 2019-07-05 02:00 | NUR ---
PATIENT WAS GIVEN PAIN MEDICATION FOR C/O HEADACHE, SHE IS AWAKE. SHE WAS ABLE O TOLERATE HER MEDICATION. NO COUGH NOTED. CALL LIGHT WITHIN REACH. WILL CONTINUE TO MONITOR.
--- NOTE | 2019-07-05 04:00 | NUR ---
PATIENT RESTS WITH EYES CLOSED. DID HAVE AN EPISODE OF WEATHERIZATION TECHNICIAN COUGH. HOB 30 DEGREES. NO NEEDS AT THIS TIME. WILL CONTINUE TO MONITOR.
[2019-07-05 05:42] LABS: HEMOGLOBIN 10.6 g/dl (12.0-16.0); IMMATURE GRANULOCYTES 1.3 % (0.0-5.0); MEAN CELL VOLUME 96.3 fL CALC (80.0-100.0); MEAN CORPUSCULAR HGB 28.3 pG CALC (26.0-32.0); MEAN CORPUSCULAR HGB CONC 29.4 g/L CALC (32.0-36.0); NEUT# 11.6 thou/uL (2.00-7.15); RED BLOOD COUNT 3.74 mill/uL (4.20-5.60); RED CELL DISTRI WIDTH 14.8 % (11.5-15.5)
[2019-07-05 05:45] LABS: CREATININE 1.2 mg/dL (0.5-1.0); POTASSIUM 4.7 mmol/l (3.5-5.1)
[2019-07-05 05:50] LABS: BILIRUBIN, TOTAL 0.2 mg/dL (0.0-1.4); TOTAL PROTEIN 5.6 g/dL (6.3-8.2)
--- NOTE | 2019-07-05 06:04 | NUR ---
PATIENT LAYS WITH HOB 30 DEGREES, RESTS WITH EYES CLOSED. NO ACUTE DISTRES SHSOWN. CALL LIGHT WITHIN REACH.
--- NOTE | 2019-07-05 07:30 | NUR ---
PT REPOSITIONED, BREAKFAST TRAY SET UP. PT TOLERATED WELL.
--- NOTE | 2019-07-05 08:30 | NUR ---
DR. GODINEZ AND MARGARET DONAHUE AT BEDSIDE FOR ASSESSMENT AND TO DISCUSS PLAN OF CARE. NEW ORDERS RECIEVED.
--- NOTE | 2019-07-05 11:30 | NUR ---
PT SITTING UP ON SIDE OF BED, EATING LUNCH. PT STATES NOT C/O BUT COMPLAINING OF NO SALT IN HOSPITAL FOOD.
--- NOTE | 2019-07-05 12:15 | NUR ---
FULL BED BATH & LINEN CHANGE COMPLETED.
--- NOTE | 2019-07-05 12:28 | NUR ---
FRIEND @BEDSIDE. PT REPOSITIONED SELF IN BED. VSS. AMIODORONE INFUSING.
--- NOTE | 2019-07-05 19:21 | NUR ---
REPORT GIVEN BY CARMELITA MENG. PATIENT ALERT AND ORIENTED WITH FAMILY AT THE BEDSIDE. RESP EVEN AND UNLABORED. 2L VIA NC WITH CORUSE WHEEZES PRESENT. NO S/S OF DISTRESS NOTED. PLAN OF CARE DISCUSSED. PATIENT INFORMED TO CALL WITH ANY QUESTIONS OR CONCERNS.
--- NOTE | 2019-07-05 20:11 | NUR ---
PATIENT WAS REPOSTION AND TURNED PER HER REQUEST. PATIENT WAS ALBE TO HEL PULL HERSELF UP AND TURN TO THE RIGHT TO HAVE A PILLOW PLACED UNDER HER LEFT SIDE.
--- NOTE | 2019-07-05 21:45 | NUR ---
PATIENT REPOSTIONED AND TURNED PER HER REQUEST. SHE WAS ABLE TO TURN TO THE LEFT AND RIGHT WITHOUT DIFFCULTY WHEN I WAS APPLYING LOTION TO HER BACK. SHE STATES THAT HER BACK ITCHES AND KOLB.
[2019-07-06] VITALS (13 sets, daily range): BP systolic 125–176; BP diastolic 53–72
--- NOTE | 2019-07-06 00:15 | NUR ---
PATIENT RESTING WITH EYES CLOSED. RESP EVEN AND UNLABORED. NO S/S OF DISTRESS NOTED.
--- NOTE | 2019-07-06 04:10 | NUR ---
PATIENT AWAKE AND STATING SHE FELT WET. PATIENT WAS GIVEN A BED BATH AND THE LINENS WERE CHANGED. RESP EVEN AND UNLABORED. NO S/S OF DISTRESS NOTED.
--- NOTE | 2019-07-06 06:12 | NUR ---
PATIENT RESTING WITH EYES CLOSED. NO S/S OF DISTRESS NOTED. RESP EVEN AND UNLABORED.
--- NOTE | 2019-07-06 07:20 | NUR ---
pt resting in bed with eyes closed; no apparent distress noted; easily aroused; pt offers no complaints; assessment completed at this time; pt alert and oriented; denies pain; no n/v/sob noted; resp even and unlabored; lungs coarse with faint exp wheezing noted; skin color wnl; loose hearing aid repair technician cough noted; sob with exertion noted; hr reg; doppler pedal pulses; no edema noted; sr on monitor; abd soft with bs present; no bm noted per specification writer; purewick catheter intact and patent; no urine to inspect at this time; #22 to lh/ #22 in rac; iv's flushed and patent; no redness or edema noted at site; plan of care/ meds explained; pt informed she will need to get up to chair; pt declines stating "I thought the torture was over with"; call light within reach; will continue to monitor
--- NOTE | 2019-07-06 07:51 | NUR ---
pt refusing chair this am; order for up to chair tid explained; pt refused; lab at bedside; will continue to monitor
[2019-07-06 08:14] LABS: ANION GAP 9 (6-22 (CALC)); BUN 52 mg/dL (8-23); BUN/CREATININE RATIO 53 (12-20 (CALC)); CARBON DIOXIDE 28 mmol/l (22-30); CHLORIDE 105 mmol/l (95-108); GFR 53 ML/MIN (>=60 (CALC)); GFR FOR AFR.AMER. > 60 ML/MIN (>=60 (CALC)); MAGNESIUM 1.9 mg/dL (1.6-2.3); POTASSIUM 4.2 mmol/l (3.5-5.1); SODIUM 139 mmol/l (137-146)
--- NOTE | 2019-07-06 08:45 | NUR ---
NONA De Oliveira present at bedside to assess pt and disuss plan of care
--- NOTE | 2019-07-06 09:04 | NUR ---
am meds explained and administered
--- NOTE | 2019-07-06 09:34 | NUR ---
up to recliner; call light within reach
--- NOTE | 2019-07-06 10:10 | NUR ---
pt back to bed as per request; purewick external catheter changed; pt with complaints of nursing staff just leaving her in a position uncomfortable; call light has been within reach; niece present at bedside; pt repositioned for comfort in bed; pt requesting nursing staff to uncover her feet and arms also raise head of bed; bed controls explained per this proposal writer; proposal writer has explained to pt need for more self involvement with adls such as undercoving her arms if needed; will continue to monitor
--- NOTE | 2019-07-06 12:00 | NUR ---
awake in bed; refusing lunch; pt states she is short of breath; no resp distress noted per this magnetic tape typewriter operator; o2 sat 97%; lungs coarse; sr on monitor; purewick intact and patent; iv's intact; call light within reach; will continue to monitor
--- NOTE | 2019-07-06 12:40 | NUR ---
Dr Alatorre and NONA De Oliveira present at bedside to assess pt and discuss plan of care; increase in activity explained per MD; will continue to monitor
--- NOTE | 2019-07-06 13:00 | NUR ---
Dr Alatorre and NONA De Oliveira present at bedside to assess pt and discuss plan of care; dressings removed per MD; serosang drainage noted to bilat feet wounds; photo obtained; orders received to apply simple dressing; wounds conver with nonadhesive pad and gauze; secured with kerlix and tape; bp reassessed; call light within reach; will continue to monitor
--- NOTE | 2019-07-06 14:06 | NUR ---
resting in bed with eyes closed; no apparent distress noted; resp even and unlabored; o2 per nc; purewick cath intact; sr on monitor; iv's intact; easily aroused but drowsy; call light within reach; will continue to monitor
--- NOTE | 2019-07-06 15:00 | NUR ---
pt transported to u/s via wc with portable o2 in stanle condition;
--- NOTE | 2019-07-06 16:17 | NUR ---
awake in bed; pt with complaints of left sided pain and back pain; repositioning strongly encouraged; medicated as per orders; pt requesting copy writer to straighten out legs and right arm; pt also requesting staff reposition pillow and "shift butt"; pt able to reposition self with direction/ instruction of this copy writer; pillow adjusted for comfort; purewick intact; iv patent; sr on monitor; will continue to monitor
--- NOTE | 2019-07-06 17:20 | NUR ---
up to chair for for dinner
--- NOTE | 2019-07-06 18:07 | NUR ---
resting in recliner with eyes closed; no apparent distress noted; o2 per nc; purewick cath intact; iv's intact; sr/pac on monitor; call light within reach
--- NOTE | 2019-07-06 18:30 | NUR ---
pt assisted back to bed; pericare for lg urinary incont; purewick replaced; repositioned for comfort; IS reiterated with pt; pt noted with poor effort; 500 ml max pull; IS encouraged q1 hr x10 reps; call light within reach
--- NOTE | 2019-07-06 19:00 | NUR ---
PATIENT AROUSES EASILY WITH VERBAL STIMULI, ALERT AND ORIENTED X4. ON 2L/MIN NC, SATS 100%. NO SOB NOTED. DENIES PAIN. ABLE TO FOLLOW INSTRUCTIONS. HEAD TO TOE NURSING ASSESSMENT PERFROMED, SEE CHARTING. AFEBRILE. PATIENT ABLE TO REPOSITION WITH CUEING. SR ON TELEMETRY. POC FOR TONIGHT DISCUSSED. RAC AND LH IV'S INTACT, FLUSH PROPERLY, SALINE LOCKED. PATIENT LAYS WITH A LIGHT SHEET ON TOP OF HER LOWER TORSO TO HER KNEES. CALL LIGHT WITHIN REACH. PATIENT COMPLAINS OF RUNNY NOSE, I HAVE SET TISSUES AT BEDSIDE, SHE CLEANED HER NOSE AND I INSTRUCTED HER TO LAY WITH HOB ABOUT 45 DEGREES IN CASE SHE NEEDS TO BLOW HER NOSE, AGREES, HOB ABOUT 45 DEGREES. WILL CONTINUE TO MONITOR.
--- NOTE | 2019-07-06 19:52 | NUR ---
PATIENT ROVING DEPARTMENT SUPERVISOR LIGHT REGARDING SHE COMPLAINS OF FEELING "HOT." TEMPERATURE IS ALL THE WAY DOWN TO 60 DEGREES ALREADY. PATIENT REQUESTED TO UNCLIP THE GOWN SLEEVES AND JUST HAVE GOWN PLACED ACROSS HER LOWER CHEST. REUQESTED FOR SHEET TO BE TAKEN OFF WELL.
--- NOTE | 2019-07-06 20:15 | NUR ---
PATIENT WAS SAFELY TRANSFERRED TO AND FROM [facility]. SHE DID NOT HAVE A BM, JUST VOIDED A SCANT AMOUNT OF URINE. HOB 30 DEGREES. PUREWICK REPLACED ON LCS. CALLED LIGHT WITHIN REACH.
--- NOTE | 2019-07-06 21:20 | NUR ---
PATIENT ABLE TO TOLERATE HER BEDTIME MEDICATIONS, SHE REQUESTED MEDICATION TO HELP HER "RELAX," XANAX GIVEN, ALSO MEDICATION FOR C/O ITCHING WAS GIVEN. NO ACUTE DISTRESS NOTED. HOB ABOUT 30 DEGREES NOW. CALL LIGHT WITHIN REACH.
--- NOTE | 2019-07-06 22:20 | NUR ---
PATIENT LAYS WITH HOB ABOUT 30 DEGREES, RT IN ROOM FOR BREATHING TREATMENT. NO ACUTE DISTRES SHOWN. CALL LIGHT WITHIN REACH. WILL CONTINUE TO MONITOR.
[2019-07-07] VITALS (11 sets, daily range): BP systolic 127–168; BP diastolic 59–110
--- NOTE | 2019-07-07 | NUR ---
PT LAYS WITH HOB ABOUT 30 DEGREES. ON 2L/MIN NC, SATS 100%. NO ACUTE DISTRESS SHOWN. NO SOB NOTED. NO COMPLAINTS OF PAIN. AROUSES EASILY WITH VERBAL STIMULI. PUREWICK INTACT AT LCS. CALL LIGHT WITHIN REACH. WILL CONTINUE TO MONITOR.
--- NOTE | 2019-07-07 02:00 | NUR ---
PATIENT LAYS WITH HOB 30 DEGREES. RESTS WITH EYES CLOSED. NO ACUTE DISTRES SHOWN. NO NEEDS AT THIS TIME. SR ON TELEMETRY, SATS 100% ON NC 2L/MIN. CALL LIGHT WITHIN REACH.
--- NOTE | 2019-07-07 03:44 | NUR ---
PATIENT STONER HAND LIGHT DUE TO SHE FELT "WET" UNDER HER PADDING. PATIENT WAS CHECKED AND IS DRY, PUREWICK INTACT AND AT LCS. PATIENT ALSO REPORTED FEELING IN PAIN ALL OVER, RATED 8/10, PAIN MEDICATION WAS OFFERED AND GIVEN. PATIENT NOW LAYS ON HER RIGHT SIDE WITH LIGHT SHEET OVER HER SHOULDERS, HOB 20 DEGREES. CALL LIGHT WITHIN REACH. WILL CONTINUE TO MONITOR.
[2019-07-07 04:39] LABS: HEMOGLOBIN 11.3 g/dl (12.0-16.0); MEAN CELL VOLUME 94.6 fL CALC (80.0-100.0); MEAN CORPUSCULAR HGB 28.9 pG CALC (26.0-32.0); MEAN CORPUSCULAR HGB CONC 30.5 g/L CALC (32.0-36.0); RED BLOOD COUNT 3.91 mill/uL (4.20-5.60); RED CELL DISTRI WIDTH 14.5 % (11.5-15.5)
[2019-07-07 05:00] LABS: ANION GAP 8 (6-22 (CALC)); BUN 50 mg/dL (8-23); BUN/CREATININE RATIO 59 (12-20 (CALC)); CARBON DIOXIDE 30 mmol/l (22-30); CHLORIDE 106 mmol/l (95-108); CREATININE 0.9 mg/dL (0.5-1.0); GFR 60 ML/MIN (>=60 (CALC)); GFR FOR AFR.AMER. > 60 ML/MIN (>=60 (CALC)); POTASSIUM 4.6 mmol/l (3.5-5.1); SODIUM 139 mmol/l (137-146)
--- NOTE | 2019-07-07 06:20 | NUR ---
PATIENT ABLE TO TOLERATE HER MORNING MEDICATION BY MOUTH. NO ACUTE DISTRES SSHOWN. SATS 100% ON 2L/MIN NC. NO SOB NOTED. SR ON TELEMETRY. NO NEEDS AT THIS TIME. CALL LIGHT WITHIN REACH.
--- NOTE | 2019-07-07 07:35 | NUR ---
pt resting in bed with eyes closed; no apparent distress noted; easily aroused; offers no complaints; assessment completed at this time; pt alert; denies pain; no n/v/resp distress noted; resp even and unlabored; lungs coarse; skin color wnl; o2 per nc at 2; service dismantler cough noted; hr reg; doppler pedal pulses with slight cyanosis noted later feet/toes; no edema noted; sr on monitor; abd soft with bs present; no bm noted per health science writer; purewick ext cath intact and patent; #22 to rac and #22 to lh flushed and patent; no redness or edema noted at sites; up to recliner with some verbal resistance; IS present at bedside; pt able to pull max 500ml with poor effort; IS encouraged q1 hr x10 reps; call light within reach; will continue to monitor
--- NOTE | 2019-07-07 08:04 | NUR ---
awake in recliner; offers no complaints; sr on monitor; call light within reach; will continue to monitor
--- NOTE | 2019-07-07 09:17 | NUR ---
am meds explained and administered; pericare per staff for lg urinary incont; purewick replaced; repositioned in bed for comfort; pt declined am care; IS used x 20+ reps; poor effort; max pull of 500ml; will continue to monitor
--- NOTE | 2019-07-07 10:12 | NUR ---
resting with eyes closed; sr on monitor; call light within reach; will continue to monitor
--- NOTE | 2019-07-07 11:45 | NUR ---
lunch provided; pt refusing acitivty/ recliner/lunch at this time; will continue to monitor
--- NOTE | 2019-07-07 12:06 | NUR ---
awake in bed; assist to recliner for meal; sr on monitor; iv intact; purewick intact; o2 per nc; call light within reach; will continue to monitor
--- NOTE | 2019-07-07 13:21 | NUR ---
Dr Alatorre and NONA De Oliveira present at bedside to assess pt and discuss plan of care
--- NOTE | 2019-07-07 13:50 | NUR ---
report called to Med/Surg Trixie
--- NOTE | 2019-07-07 14:02 | NUR ---
awake in recliner; no apparent distress noted; sr on monitor; o2 per nc; purewick intact and patent; med surg transfer explained; will continue to monitor
--- NOTE | 2019-07-07 14:25 | NUR ---
pt transferred to Med Surg room 278; bedside report/update provided to Bowen Dhaliwal LPN; pt repositioned in bed for comfort as per request; tele monitor to be obtained from ER
--- NOTE | 2019-07-07 14:30 | NUR ---
PT ARRIVED FROM ICU VIA WC ACCOMPANIED BY STAFF.
--- NOTE | 2019-07-07 17:00 | NUR ---
PT IS RELAXING IN THE CHAIR.
--- NOTE | 2019-07-07 17:30 | NUR ---
PT DID NOT WANT TO GET IN THE CHAIR, ABLE TO USE THE BSC.,WAS ALREADY RESETTLED IN BED AFTER BSC,
--- NOTE | 2019-07-07 18:13 | NUR ---
PT C/O SOB AND CHEST PAIN. CHECKED VS : 131/61, 107, 99%, 97.8. GAVE A XANAX AND ORDERING A TROPONIN AND EKG , INQUIRED IF PT WAS NERVOUS ABOUT BEING UP HERE, STATED" NO , I AM GLAD TO BE HERE".
--- NOTE | 2019-07-07 18:21 | NUR ---
SPOKE WITH RE: PT C/O CHEST PAIN AND SOB. PT STATED" I WILL NOT C/O ANYTHING AGAIN" EXPLAINED IT PROTECTS HER , SHE THEN STATED" NO ITS TO PROTECT THE HOSPITAL".
--- NOTE | 2019-07-07 19:00 | NUR ---
RECEIVED REPORT FROM NURSE MACIAS PATIENT APPEARS TO BE SLEEPING WITH EYES CLOSED BEVEN UNLABORED BREATHING CALL LIGHT AT REACH.
--- NOTE | 2019-07-07 22:17 | NUR ---
PATIENT ASSISTED TO BEDSIDE COMMODE NOTED TO HAVE WEAKNESS, WAS ABLE TO TRANSFER TO COMMODE SLOWLY LIMITED ONE PERSON ASSIST AND ASSISTED BACK IN BED.REMAINS ON O2 @ 2LPM VIA NC, EVEN UNLABORED BREATHING CALL LIGHT AT REACH.
[2019-07-08 00:01] VITALS: BP 138/60
--- NOTE | 2019-07-08 00:05 | NUR ---
PATIENT APPEARS TO SLEEPING AT THIS TIME, REMAINS ON O2 @ 2LPM VIA NC, SHALLOW UNLABORED BREATHING, CALL LIGHT WITRHIN REACH.
--- NOTE | 2019-07-08 02:37 | NUR ---
PATIENT C/O BACK PAIN, AND ITCHINESS STATING FROM HER PREVIOUS SHINGLES, PATIENT REPOSITION, PRN LORTAB GIVEN AND HYDROXYZINE, WILL REEVALUATE.
--- NOTE | 2019-07-08 04:05 | NUR ---
Patient appears to be sleeping with eyes closed remains on o2 @ 2LPM VIA NC with even unlabored breathing call light at reach.
[2019-07-08 04:51] VITALS: BP 128/57
[2019-07-08 05:23] LABS: HEMATOCRIT 35.9 % (37.0-47.0); HEMOGLOBIN 10.9 g/dl (12.0-16.0); MEAN CELL VOLUME 92.8 fL CALC (80.0-100.0); MEAN CORPUSCULAR HGB 28.2 pG CALC (26.0-32.0); MEAN CORPUSCULAR HGB CONC 30.4 g/L CALC (32.0-36.0); RED BLOOD COUNT 3.87 mill/uL (4.20-5.60); RED CELL DISTRI WIDTH 14.4 % (11.5-15.5)
[2019-07-08 05:41] LABS: ANION GAP 8 (6-22 (CALC)); BUN 46 mg/dL (8-23); BUN/CREATININE RATIO 50 (12-20 (CALC)); CARBON DIOXIDE 31 mmol/l (22-30); CHLORIDE 104 mmol/l (95-108); CREATININE 0.9 mg/dL (0.5-1.0); GFR 60 ML/MIN (>=60 (CALC)); GFR FOR AFR.AMER. > 60 ML/MIN (>=60 (CALC)); POTASSIUM 4.4 mmol/l (3.5-5.1); SODIUM 138 mmol/l (137-146)
--- NOTE | 2019-07-08 07:05 | NUR ---
REPORT RECEIVED FROM TAQUERIA POLLACK;PT APPEARS TO BE SLEEPING IN SEMI FOWLERS POSITION;RESPIRATIONS APPEAR EVEN AND UNLABORED ON O2 @ 2L VIA NC;NO S/S OF DISTRESS NOTED;TELE MONITORING IN PLACE;ALL SAFETY PRECAUTIONS IN PLACE WITH BED IN THE LOWEST POSITION AND CALL LIGHT IN REACH;WILL CONTINUE TO MONITOR
[2019-07-08 08:25] VITALS: BP 141/74
--- NOTE | 2019-07-08 08:25 | NUR ---
PT RESTING IN SEMI FOWLERS POSITION, A&O X4 WITH FLAT AFFECT NOTED;PT ASSISTED TO RECLINER WITH 1 PERSON ASSIST AND WEAK GAIT;VS OBTAINED AND ASSESSMENT COMPLETED;PT DENIES ANY CURRENT PAIN OR DISCOMFORTS,PAIN SCALE AND REPORTING EDUCATED;RESPIRATIONS SHALLOW ON O2 @ 2L VIA NC, WHEEZES NOTED TO UPPER LOBES;NON-PRODUCTIVE COUGH NOTED AT TIMES;ABDOMEN SOFT ON PALPATION AND ACTIVE IN ALL 4 QUADRANTS;WEAK PEDAL PULSES, COOL TO TOUCH;SKIN INTACT;TELE MONITORING IN PLACE;#22G TO RAC FLUSHED AND PATENT,SITE APPEARS HEALTHY;PHYSICAL THERAPY AT BEDSIDE AND MEAL TRAY SET UP PROVIDED;PT DENIES ANY ADDITIONAL NEEDS AT THIS TIME,ENCOURAGED TO REMAIN OOB AND CALL FOR ASSISTANCE IF NEEDED;FALL PRECAUTIONS IN PLACE WITH CALL LIGHT IN REACH;WILL CONTINUE TO MONITOR
--- NOTE | 2019-07-08 08:36 | NUR ---
PT AMBULATING THE HALLWAY WITH A WEAK GAIT AND ASSISTED DEVICE ACCOMPANIED BY PHYSICAL THERAPY.
--- NOTE | 2019-07-08 09:22 | NUR ---
RT EBONY AT BEDSIDE ADMINISTERING BREATHING TREATMENT.
--- NOTE | 2019-07-08 09:55 | NUR ---
PT REPORTS BACK AND LEFT FLANK PAIN RATING 10/10 ON THE PAIN SCALE AND REQUESTS PAIN MEDICATION;PT MEDICATED WITH LORTAB 5/325MG PO AT THIS TIME;WILL CONTINUE TO MONITOR FOR EFFECTIVENESS
[2019-07-08 11:00] VITALS: BP 127/51
--- NOTE | 2019-07-08 11:15 | NUR ---
PT REMAINS OOB RESTING IN RECLINER WORKING WITH HER I.S.;RESPIRATIONS REMAIN SHALLOW ON O2 @ 2L VIA NC;PT REPORTS BACK PAIN AND LT FLANK PAIN HAS DECREASED AT THIS TIME AFTER PAIN MEDICATION ADMINISTRATION;TELE MONITORING IN PLACE;PT DENIES ANY ADDITIONAL NEEDS AND IS ENCOURAGED TO CALL FOR ASSISTANCE IF NEEDED;FALL PRECAUTIONS IN PLACE WITH CALL LIGHT IN REACH;WILL CONTINUE TO MONITOR
--- NOTE | 2019-07-08 11:55 | NUR ---
AND GODFREY BURNHAM,ANRP AT BEDSIDE DISCUSSING POC WITH PATIENT.
[2019-07-08 15:50] VITALS: BP 125/57
--- NOTE | 2019-07-08 16:00 | NUR ---
PT RESTING IN RECLINER COMPLAINING OF LEFT SIDED CHEST PAIN;VS OBTAINED AND STABLE;GODFREY BURNHAM,ANRP NOTIFIED;ORDER TO ADMINISTER PRN XANAX 0.25MG PO NOW;TELE MONITORING IN PLACE;IV SITE TO RAC PATENT;PT DENIES ANY ADDITIONAL NEEDS AT THIS TIME AND IS ENCOURAGED TO CALL FOR ASSISTANCE IF NEEDED;FALL PRECAUTIONS IN PLACE WITH CALL LIGHT IN REACH;WILL CONTINUE TO MONITOR
--- NOTE | 2019-07-08 19:00 | NUR ---
RECEIVED REPORT FROM NURSE BECERRA, PATIENT APPEARS TO BE SLEEPING HOOKED TO O2 VIA NC WITH SHALLOW, UNLABORED BREATHING.
[2019-07-08 19:29] VITALS: BP 139/63
--- NOTE | 2019-07-08 19:54 | NUR ---
RECEIEVED A PHONE CALL FROM ED ELÍAS PT HR TATE, ASSESSED ATIENT PATIENT WAS CRYING C/O BACK PAIN PS 10/10, PRN LORTAB GIVEN WILL REASSESSED.
--- NOTE | 2019-07-09 | NUR ---
GEORGIE ASSISTED TO BEDSIDE COMMODE, STATED RELIEF FROM PAIN AT THIS TIME, ASSISTED BACK IN BED, CURRENTLY RESTING IN BED EYES CLOSED CALL LIGHT AT REACH.
[2019-07-09 00:23] VITALS: BP 111/51
[2019-07-09 04:30] VITALS: BP 126/75
--- NOTE | 2019-07-09 05:46 | NUR ---
PATIENT FRESTING IN BED REMAINS ON O2 @ 2LPM VIA NC, WITH EVEN UNLABORED BREATHING CALL LIGHT AT REACH.
--- NOTE | 2019-07-09 07:20 | NUR ---
REPORT RECEIVED FROM TAQUERIA POLLAKC;PT APPEARS TO BE SLEEPING IN SUPINE POSITION;NO S/S OF DISTRESS NOTED;RESPIRATIONS APPEAR EVEN AND UNLABORED ON O2 @ 2L VIA NC;TELE MONITORING IN PLACE;FALL PRECAUTIONS NOTED WITH BED IN THE LOWEST POSITION AND CALL LIGHT IN REACH;WILL CONTINUE TO MONITOR
[2019-07-09 09:00] VITALS: BP 119/45
--- NOTE | 2019-07-09 09:00 | NUR ---
PT OOB RESTING IN RECLINER,DROWSY A&O X3;VS OBTAINED AND ASSESSMENT COMPLETED;PT REPORTS LOWER BACK AND LEFT FLANK PAIN RATING 10/10 ON THE PAIN SCALE AND REQUESTS PAIN MEDICATION, PT TO BE MEDICATED WITH LORTAB 5/325MG PO;RESPIRATIONS EVEN AND UNLABORED ON O2 @ 2L VIA NC;NON-PRODUCTIVE COUGH NOTED AT TIMES;ENCOURAGED I.S. USAGE 10X PER HOUR, PT VERBALIZES UNDERSTANDING;ABDOMEN SOFT ON PALPATION AND ACTIVE IN ALL 4 QUADRANTS;WEAK PEDAL PULSES;GENERALIZED BRUSING NOTED THROUGHOUT;#22G TO RAC FLUSHED AND PATENT,SITE APPEARS HEALTHY;TELE MONITORING IN PLACE;PT DENIES ANY ADDITIONAL NEEDS AT THIS TIME AND IS ENCOURAGED TO CALL FOR ASSISTANCE IF NEEDED;FALL PRECAUTIONS IN PLACE WITH CALL LIGHT IN REACH;WILL CONTINUE TO MONITOR
--- NOTE | 2019-07-09 09:05 | NUR ---
ER MONITORING REPORTS 16 BEAT RUN OF V-TACH, PT REMAINS ASYMPTOMATIC;GODFREY BURNHAM,ANRP NOTIFIED AND NO NEW ORDERS RECEIVED AT THIS TIME;WILL CONTINUE TO MONITOR
[2019-07-09 10:50] VITALS: BP 131/58
--- NOTE | 2019-07-09 11:02 | NUR ---
AND GODFREY BURNHAM,ANRP AT BEDSIDE DISCUSSING POC INCLUDING PLANS TO D/C HOME, PT VERBALIZES UNDERSTANDING.
--- NOTE | 2019-07-09 11:20 | NUR ---
PT OXYGEN REMOVED AT 1100 PER ;O2 SATS CHECKED AT THIS TIME RESULTING IN 92% ON RA;WILL CONTINUE TO MONITOR
[2019-07-09] MEDS ORDERED: DOXYCYCL HYC100 MG PO (11:38)
[2019-07-09] MEDS ORDERED: CORDARONE/200 MG/TAB PO (11:38)
[2019-07-09] MEDS ORDERED: GUAIFENESI100 MG/51 PO (11:38)
[2019-07-09] MEDS ORDERED: ELIQUIS2.5 MG PO (11:38)
[2019-07-09] MEDS ORDERED: PREDNISONE10 MG PO (11:38)
[2019-07-09] MEDS ORDERED: LOPRESSOR25 MG PO (11:38)
--- NOTE | 2019-07-09 12:20 | NUR ---
PT OOB RESTING IN RECLINER;RESPIRATIONS REMAIN EVEN AND UNLABORED ON RA;TELE MONITORING IN PLACE;PT DENIES ANY CURRENT NEEDS AND IS ENCOURAGED TO CALL FOR ASSISTANCE IF NEEDED;FALL PRECAUTIONS REMAIN IN PLACE WITH CALL LIGHT IN REACH;WILL CONTINUE TO MONITOR
[2019-07-09 14:50] VITALS: BP 168/68
--- NOTE | 2019-07-09 15:18 | NUR ---
ALL DISCHARGE INSTRUCTIONS PROVIDED AT THIS TIME;PRESCRIPTIONS PREVIOUSLY PROVIDED BY [facility];IV SITE REMOVED WITH CATHETER INTACT AND TELE MONITORING D/C;PT ENCOURAGED TO MONITOR HER BP AND HR FREQUENTLY AND TAKE ALL MEDICATION PRESCRIBED;DAUGHTER AT BEDSIDE AND VERBALIZES UNDERSTANDING OF D/C INSTRUCTIONS WELL;PT DENIES ANY ADDITIONAL NEEDS AT THIS TIME;WHEELCHAIR TO BE PROVIDED FOR D/C HOME;DAUGHTER TO TRANSPORT PATIENT HOME.
--- NOTE | 2019-07-09 15:38 | NUR ---
Discharge instructions given. Patient verbalizes understanding of same. Discharged in stable condition via Wheelchair to Home with family. All belongings sent with pt. Pt discharged to lobby via wheelchair in stable condition accompanied by volunteer and daughter.
== END 2019-07-09 15:38 | DRG 190 ==
LOC: ED 16:58 → ED-I 19:44 → ED 20:00 → MS2 20:01 → ICU 07-04 15:02 → MS2 07-07 14:30
PROVIDERS: Family Medicine; Nurse Practitioner Family; ADMIT Internal Medicine; ATTEND Internal Medicine
DX: J44.1 Chronic obstructive pulmonary disease with (acute) exacerbation (principal); J18.9 Pneumonia, unspecified organism; I13.0 Hypertensive heart and chronic kidney disease with heart failure and stage 1 through stage 4 chronic kidney disease, or unspecified chronic kidney disease; I47.1 Supraventricular tachycardia; N17.9 Acute kidney failure, unspecified; J44.0 Chronic obstructive pulmonary disease with (acute) lower respiratory infection; I50.9 Heart failure, unspecified; N18.3 Chronic kidney disease, stage 3 (moderate); I48.0 Paroxysmal atrial fibrillation; E03.9 Hypothyroidism, unspecified; F32.9 Major depressive disorder, single episode, unspecified; E78.5 Hyperlipidemia, unspecified; M19.90 Unspecified osteoarthritis, unspecified site; G89.4 Chronic pain syndrome; I45.10 Unspecified right bundle-branch block; I25.119 Atherosclerotic heart disease of native coronary artery with unspecified angina pectoris; I34.2 Nonrheumatic mitral (valve) stenosis; F41.1 Generalized anxiety disorder; G31.84 Mild cognitive impairment of uncertain or unknown etiology; I70.203 Unspecified atherosclerosis of native arteries of extremities, bilateral legs; Z95.3 Presence of xenogenic heart valve; Z79.02 Long term (current) use of antithrombotics/antiplatelets; Z87.891 Personal history of nicotine dependence
CPT/HCPCS: J0282; J1650; J3475

== ENCOUNTER 2019-12-02 16:29 | Observation (INO) | payer MEDICARE, MEDICAID ==
[~2019-12-02] VITALS: Ht 157.5 cm; Wt 77.3 kg
[~2019-12-02 16:29] MED LIST changes: +CORDARONE/200 MG/TAB PO; +DOXYCYCL HYC100 MG PO; +ELIQUIS2.5 MG PO; +GUAIFENESI100 MG/51 PO; +VITAMIN D35000 UNIT PO; +ZPAK PO
[2019-12-02 17:16] LABS: HEMATOCRIT 38.9 % (37.0-47.0); HEMOGLOBIN 11.8 g/dl (12.0-16.0); IMMATURE GRANULOCYTES 0.5 % (0.0-5.0); MEAN CORPUSCULAR HGB 31.4 pG CALC (26.0-32.0); MEAN CORPUSCULAR HGB CONC 30.3 g/dL CAL (32.0-36.0); NEUT# 3.95 thou/uL (2.00-7.15); RED BLOOD COUNT 3.76 mill/uL (4.20-5.60); RED CELL DISTRI WIDTH 13.3 % (11.5-15.5)
[2019-12-02 17:17] LABS: MEAN CELL VOLUME 103.5 fL CALC (80.0-100.0)
[2019-12-02 17:31] LABS: POTASSIUM 4.8 mmol/l (3.5-5.1)
[2019-12-02 17:34] LABS: BILIRUBIN, TOTAL 0.4 mg/dL (0.0-1.4); CREATININE 2.1 mg/dL (0.5-1.0); TOTAL PROTEIN 6.8 g/dL (6.3-8.2)
[2019-12-02] MEDS ORDERED: LEVOTHYROXIN100 MCG PO (18:01)
[2019-12-02] MEDS ORDERED: CLOPIDOGREL75 MG PO (18:03)
[2019-12-02] MEDS ORDERED: BUSPIRONE5 MG PO (18:04)
[2019-12-02 22:00] VITALS: BP 128/47
[2019-12-02 23:50] VITALS: BP 126/50
[2019-12-03 05:20] VITALS: BP 158/58
[2019-12-03 06:23] LABS: CREATININE 1.2 mg/dL (0.5-1.0)
[2019-12-03 07:44] VITALS: BP 162/79
[2019-12-03 09:52] LABS: HEMOGLOBIN 11.4 g/dl (12.0-16.0); IMMATURE GRANULOCYTES 0.4 % (0.0-5.0); MEAN CELL VOLUME 102.7 fL CALC (80.0-100.0); MEAN CORPUSCULAR HGB 30.8 pG CALC (26.0-32.0); NEUT# 5.04 thou/uL (2.00-7.15); RED BLOOD COUNT 3.7 mill/uL (4.20-5.60); RED CELL DISTRI WIDTH 13.3 % (11.5-15.5)
[2019-12-03] MEDS ORDERED: DOXYCYCL HYC100 MG PO (11:52)
[2019-12-03 12:00] VITALS: BP 142/74
== END 2019-12-03 12:50 | disposition home or self-care (01) ==
LOC: ED 16:29 → ED-I 18:55 → ED 19:18 → MS2 19:19
PROVIDERS: Family Medicine; ADMIT Internal Medicine; ATTEND Internal Medicine
DX: J15.9 Unspecified bacterial pneumonia (principal); J44.0 Chronic obstructive pulmonary disease with (acute) lower respiratory infection; J44.1 Chronic obstructive pulmonary disease with (acute) exacerbation; N17.9 Acute kidney failure, unspecified; I12.9 Hypertensive chronic kidney disease with stage 1 through stage 4 chronic kidney disease, or unspecified chronic kidney disease; N18.3 Chronic kidney disease, stage 3 (moderate); I25.10 Atherosclerotic heart disease of native coronary artery without angina pectoris; I48.0 Paroxysmal atrial fibrillation; E03.9 Hypothyroidism, unspecified; E78.5 Hyperlipidemia, unspecified; E86.0 Dehydration; I73.9 Peripheral vascular disease, unspecified; G25.81 Restless legs syndrome; Z87.891 Personal history of nicotine dependence; Z95.2 Presence of prosthetic heart valve; Z20.828 Contact with and (suspected) exposure to other viral communicable diseases
CPT/HCPCS: G0378

== ENCOUNTER 2020-02-10 16:28 | Emergency (ER) | payer MEDICARE, MEDICAID ==
[~2020-02-10 16:28] MED LIST changes: +BUSPIRONE5 MG PO; +LEVOTHYROXIN100 MCG PO
[2020-02-10 18:38] LABS: HEMOGLOBIN 9.6 g/dl (12.0-16.0); IMMATURE GRANULOCYTES 0.4 % (0.0-5.0); MEAN CORPUSCULAR HGB 30.1 pG CALC (26.0-32.0); MEAN CORPUSCULAR HGB CONC 30.1 g/dL CAL (32.0-36.0); NEUT# 6.43 thou/uL (2.00-7.15); RED BLOOD COUNT 3.19 mill/uL (4.20-5.60); RED CELL DISTRI WIDTH 14.2 % (11.5-15.5)
[2020-02-10 18:44] LABS: HEMATOCRIT 31.9 % (37.0-47.0)
[2020-02-10 18:53] LABS: ALBUMIN 4.2 g/dL (3.2-5.0); BILIRUBIN, TOTAL 0.4 mg/dL (0.0-1.4); CREATININE 1.8 mg/dL (0.5-1.0); POTASSIUM 3.6 mmol/l (3.5-5.1); TOTAL PROTEIN 6.9 g/dL (6.3-8.2)
[2020-02-10 20:54] LABS: URINE BILIRUBIN - DIPSTICK NEGATIVE (NEGATIVE); URINE BLOOD DIPSTICK NEGATIVE (NEGATIVE); URINE COLOR YELLOW; URINE GLUCOSE - DIPSTICK NEGATIVE (NEGATIVE); URINE KETONE NEGATIVE (NEGATIVE); URINE LEUK ESTERASE NEGATIVE (NEGATIVE); URINE NITRITE - DIPSTICK NEGATIVE (Negative); URINE PROTEIN - DIPSTICK NEGATIVE (NEG-TRACE); URINE SPECIFIC GRAVITY 1.015; URINE UROBILINOGEN - DIPSTICK 0.2 E.U./dL (0.2)
[2020-02-10] MEDS ORDERED: ZOFRAN4 M1 PO (21:46)
[2020-02-10 22:00] VITALS: BP 149/66
== END 2020-02-10 22:07 | disposition home or self-care (01) ==
LOC: ED 16:28
PROVIDERS: Family Medicine
DX: R11.2 Nausea with vomiting, unspecified (principal); I11.0 Hypertensive heart disease with heart failure; I50.9 Heart failure, unspecified; Z20.828 Contact with and (suspected) exposure to other viral communicable diseases

== ENCOUNTER 2020-03-02 15:55 | Observation (INO) | payer MEDICARE, MEDICAID ==
[~2020-03-02] VITALS: Ht 157.5 cm; Wt 65.1 kg
[~2020-03-02 15:55] MED LIST changes: +ZOFRAN4 M1 PO
--- NOTE | 2020-03-02 16:05 | NUR ---
PT TO ROOM FOR BEDSIDE TRIAGE
--- NOTE | 2020-03-02 16:20 | NUR ---
PT ASSESSED. CHANGED TO GOWN. MONITORS IN PLACE. PT REPORTS FEELING WEAK TODAY. DAUGHTER AT BEDSIDE
[2020-03-02 17:22] LABS: HEMATOCRIT 27.9 % (37.0-47.0); HEMOGLOBIN 8.1 g/dl (12.0-16.0); IMMATURE GRANULOCYTES 0.8 % (0.0-5.0); MEAN CELL VOLUME 95.9 fL CALC (80.0-100.0); MEAN CORPUSCULAR HGB 27.8 pG CALC (26.0-32.0); NEUT# 8.25 thou/uL (2.00-7.15); RED BLOOD COUNT 2.91 mill/uL (4.20-5.60); RED CELL DISTRI WIDTH 15.9 % (11.5-15.5)
[2020-03-02 17:31] LABS: ALBUMIN 3.6 g/dL (3.2-5.0); BILIRUBIN, TOTAL 0.4 mg/dL (0.0-1.4); POTASSIUM 3.3 mmol/l (3.5-5.1)
[2020-03-02 17:38] LABS: CREATININE 2.8 mg/dL (0.5-1.0)
--- NOTE | 2020-03-02 18:17 | NUR ---
CALL PLACED TO PHARMACY REGARDING IV POTASSIUM.
--- NOTE | 2020-03-02 19:10 | NUR ---
REPORT GIVEN TO SOPHIE MENG
--- NOTE | 2020-03-02 21:07 | NUR ---
ATTEMPTED TO RECONCILE MEDS, PT UNABLE TO REMEMBER MEDICATIONS, STATES " I DON'T HAVE MY LIST"
--- NOTE | 2020-03-02 21:26 | NUR ---
REPORT TO MEG MENG
[2020-03-02 22:00] VITALS: BP 118/56
--- NOTE | 2020-03-02 22:06 | NUR ---
PT. ARRIVED TO THE FLOOR VIA STRETCHER ACCOMPANIED BY ER NURSE,TAQUERIA BARRIOS. PT. TRANSFERRED OVER TO THE BED WITH STAFF ASSISTANCE. PT. DENIES PAIN OR NAUSEA AT THIS TIME. EDCUATED MANAGER CUSTOMER SERVICE LIGHT, POC, AND ROOM; VERBALIZES UNDERSTANDING. ASSESSMENT COMPLETED; SEE INTERVENTION. VSS. NO RESP. DISTRESS NOTED. DENIES HAVING ANY FEVER AT HOME. PT. WITH VERY SCANT PASTY BM ON DEPENDS UNABLE TO OBTIAN SAMPLE FOR SPECIMEN. VERN CARE GIVEN AND NEW PURE WIC APPPLIED. IV SITE PATENT AND ORDERED IVF HUNG. PO FLUIDS OFFERED. PT. EDUCATED ON NPO DIET AFTER MIDNIGHT AND VERBALIZES UNDERSTANDING. CALL LIGHT IS IN REACH. WILL CONTINUE TO MONITOR.
[2020-03-03] VITALS (10 sets, daily range): BP systolic 96–125; BP diastolic 40–63
--- NOTE | 2020-03-03 | NUR ---
RESTING IN BED WITH EYES CLOSED; AROUSES EASILY; DENIES NEEDS. PUREWIC IN PLACE. ENCOURAGED TO CALL FOR ANY NEEDS.
--- NOTE | 2020-03-03 00:56 | NUR ---
SPOKE WITH ER PHYSICIAN, DR. DAWSON, AND PER MD DR. ROMO WAS SPOKE TO ALREADY IN REGARDS TO CONSULT.
[2020-03-03 02:09] LABS: URINE BILIRUBIN - DIPSTICK NEGATIVE (NEGATIVE); URINE BLOOD DIPSTICK NEGATIVE (NEGATIVE); URINE COLOR YELLOW; URINE GLUCOSE - DIPSTICK NEGATIVE (NEGATIVE); URINE KETONE NEGATIVE (NEGATIVE); URINE LEUK ESTERASE NEGATIVE (NEGATIVE); URINE NITRITE - DIPSTICK NEGATIVE (Negative); URINE PROTEIN - DIPSTICK NEGATIVE (NEG-TRACE); URINE SPECIFIC GRAVITY 1.015; URINE UROBILINOGEN - DIPSTICK 0.2 E.U./dL (0.2)
--- NOTE | 2020-03-03 04:15 | NUR ---
PT. DROWSY AND AWAKENED FOR VS. NO DISTRESS NOTED; DENIES NEEDS. PUREWIC REMAINS IN PLACE. PT. WITHOUT A BM AT THIS TIME. ENCOURAGED TO CALL FOR ANY NEEDS. CALL LIGHT IS IN REACH.
[2020-03-03 10:15] LABS: C. DIFFICILE TOXIN A&B NEGATIVE (NEGATIVE)
[2020-03-03 10:58] LABS: HEMOGLOBIN 7.5 g/dl (12.0-16.0); MEAN CORPUSCULAR HGB CONC 28.8 g/dL CAL (32.0-36.0); RED BLOOD COUNT 2.68 mill/uL (4.20-5.60); RED CELL DISTRI WIDTH 15.9 % (11.5-15.5)
[2020-03-03 11:11] LABS: POTASSIUM 3.8 mmol/l (3.5-5.1)
--- NOTE | 2020-03-03 16:16 | NUR ---
PT IN BED WITH EYES CLOSED. NO S/S OF DISTRESS. ABLE TO VERBLIZE NEEDS. RESIDENT IS ALERT WITH CONFUSION. NO RESPIRATORY DISTRESS NOTED. MD IN TO SEE PT TODAY AND NEW ORDER FOR BLOOD TRANSFUSION AND DAUGHTER VICENTE MCGOWAN GAVE CONSENT FOR BLOOD TRANSFUSION AND COLONOSCOPY DUE TO PT HAS CONFUSION NOTED. DAUGHTER STATES HER COGNITION IS CONFUSION AT HOME WELL. MEDICATIONS GIVEN AND TOLERATED WELL. IV IN PLACE AND NO S/S OF INFILTRATION/INFECTION. PT ON CLEAR LIQUID DIET UNTIL MIDNIGHT AND WILL NPO FOR COLONOSCOPY. WILL CONTINUE TO OBSERVE AND BED IN LOWEST POSITION AND LOCKED.
--- NOTE | 2020-03-03 16:46 | NUR ---
Patient is screened for PT intervention and would benefit if medical agrees
--- NOTE | 2020-03-03 18:58 | NUR ---
BLOOD TRANSFUSION COMPLETED AND PT TOLERATED WELL WITH N O COMPLICATIONS NOTED AT THIS TIME.
--- NOTE | 2020-03-03 19:57 | NUR ---
PT IN BED WITH EYES OPEN AND ABLE TO MAKE NEEDS KNOWN. PT NOTED WITH LOOSE STOOLS. CONTINUES WITH PREP FOR COLONOSCOPY. BLOOD TRANSFUSION COMPLETE. RESPIRATION IS EVEN AND NON LABORED. MEDICATIONS GIVEN AND TOLERATED WELL.
--- NOTE | 2020-03-03 20:20 | NUR ---
PT. CLEANED OF A LARGE INCONTINENCE OF BM AND URINE. ASSESSMENT COMPLETED. DENIES PAIN. PT. GIVEN MORE OF NULYTELY TO DRINK AND ENCOURAGED TO FINISH ABOUT 2/3RD'S FINISHED AT THIS TIME. IV SITE PATENT AND ORDERED IVF DEVON. DASH HELD R/T LOW HR WITH IT BEING IN THE 50'S. UPDATED ON POC. ENCOURAGED TO CALL FOR ANY NEEDS. CALL LIGHT IS IN REACH. WILL CONTINUE TO MONITOR.
--- NOTE | 2020-03-03 23:28 | NUR ---
PT. DRANK ANOTHER CUP OF NULYTELY AND REPORTS THATS ALL SHE CAN DRINK. 1/4TH OF CONTAINER LEFT. PT. REMINDED OF NPO DIET STATUS POST MIDNIGHT. ENCOURAGED TO CALL FOR ANY NEEDS. CALL LIGHT IS IN REACH.
[2020-03-04] VITALS (11 sets, daily range): BP systolic 120–158; BP diastolic 46–75
--- NOTE | 2020-03-04 03:20 | NUR ---
PT. RESTING IN BED WITH EYES CLOSED; RESP. EVEN AND UNLABORED. CALL LIGHT IS IN REACH.
[2020-03-04 05:31] LABS: HEMATOCRIT 30.8 % (37.0-47.0); HEMOGLOBIN 9.1 g/dl (12.0-16.0); MEAN CELL VOLUME 95.7 fL CALC (80.0-100.0); MEAN CORPUSCULAR HGB 28.3 pG CALC (26.0-32.0); MEAN CORPUSCULAR HGB CONC 29.5 g/dL CAL (32.0-36.0); RED BLOOD COUNT 3.22 mill/uL (4.20-5.60); RED CELL DISTRI WIDTH 15.7 % (11.5-15.5)
[2020-03-04 05:47] LABS: BILIRUBIN, TOTAL 0.5 mg/dL (0.0-1.4); CREATININE 1.4 mg/dL (0.5-1.0); POTASSIUM 3.4 mmol/l (3.5-5.1); TOTAL PROTEIN 4.9 g/dL (6.3-8.2)
[2020-03-04 05:56] LABS: ALBUMIN 2.7 g/dL (3.2-5.0)
--- NOTE | 2020-03-04 06:17 | NUR ---
PT. CLEANED OF A SMALL INCONTINENCE OF URINE AND SCANT BM; VERN CARE GIVEN AND NEW BRIEF APPLIED WELL NEW GOWN.
--- NOTE | 2020-03-04 06:45 | NUR ---
REPORT RECEIVED FORM MEG MENG. CARE ASSUMED
--- NOTE | 2020-03-04 07:15 | NUR ---
PT TO OR VIA BED ACCOMPANIED BY OR NURSE.
--- NOTE | 2020-03-04 09:20 | NUR ---
PT RETURNED FROM OR VIA BED. PT IS ALERT AND ORIENTED X3. SHIFT ASSESSMENT COMPLETED AT THIS TIME. IV PATENT X1. BED ALARM SET FOR PT SAFETY DUE TO PATIENT BEING DROWSY POST OPERATIVELY. CALL LIGHT IN REACH. WILL CONTINUE TO MONITOR.
--- NOTE | 2020-03-04 12:00 | NUR ---
PT RESTING IN BED AWAKE. RESP ARE EVEN AND UNALBORED. NO DISTRESS NOTED. CALL LIGHT IN REACH. WILL CONTINUE TO MONITOR. PHONED DAUGHTER TO LET HER KNOW THAT PATIENT WOULD BE DISCHARGED THIS AFTERNOON. DAUGHTER REQUESTED THAT PATIENT BE ADMITTED INTO A REHAB FACILITY DUE TO DECLINE IN ABILITY TO DO FOR SELF AT HOME. DR GODINEZ AND CASE MANAGEMENT MADE AWARE.
--- NOTE | 2020-03-04 15:33 | NUR ---
PHYSICAL THERAPY AT BEDSIDE FOR EVAL AT THIS TIME. PT UP SITTING IN CHAIR AT BEDSIDE. BED ALARM IN PLACE FOR PT SAFETY.
--- NOTE | 2020-03-04 21:53 | NUR ---
PT MEDICATED ORDERS PROVIDE. PT ASSISTED SITTING UP IN THE BED AND ASSISTED W/HER PO FLUIDS. PT BECAME BELIGERENT WHEN I TOLD HER SHE COULD USE HER HANDS TO HOLD HER CUP STATING "I AM NOT A 4 YEAR OLD, I KNOW WHAT I CAN DO, I JUST DON'T WANT TO BECAUSE THE SHAKE." SHE PROCEEDED TO CALL ME NAMES. I STATED OKAY AND LEFT HER WITH LIGHTS OUT AND CALL LIGHT AT SIDE. BED ALARM ON FOR SAFETY.
--- NOTE | 2020-03-04 23:33 | NUR ---
PT APPEARS TO BE SLEEPING AT THIS TIME. NO S/O DISTRESS NOTED.
[2020-03-05 03:55] VITALS: BP 155/73
--- NOTE | 2020-03-05 04:48 | NUR ---
PT MEDICATED ORDERS PROVIDE. PT DENIED ANY OTHER NEEDS AT THIS TIME. REPOSITIONED BED FOR PT COMFORT. CALL LIGHT AT SIDE.
[2020-03-05 08:25] VITALS: BP 153/50
--- NOTE | 2020-03-05 08:25 | NUR ---
ASSESSMENT IS COMPLETD: IV SITE IS FREE FROM REDNESS OR EDEMA. HR IS REG,PULSES ARE STRONG X4, ABD IS SOFT WITH ACTIVE BS. BREATH SOUNDS ARE CLEAR BILATERALLY. TELE MONITOR IN PLACE. CONTINEU TO OBSERVE AND MONITOR.
[2020-03-05 10:50] VITALS: BP 134/56
--- NOTE | 2020-03-05 12:00 | NUR ---
PT IS SITTING IN THE BED , FAMILY IN THE ROOM. IV SITE IS FREE FROM REDNESS OR EDEMA.
--- NOTE | 2020-03-05 12:12 | NUR ---
Patient was supine in bed upon arrival. She reported she felt very cold in her feet and chest although she was well covered with linen. Therapist then performed STM on patients feet to increase circulation and warm up tissue. Pt reported her feet felt warmer however she refused to transfer from supine to sit stating she was just too cold to do anything. She was able to perform SAQ 2x10 and ankle pumps 2x10. ampac = 11
--- NOTE | 2020-03-05 13:21 | NUR ---
ENCOURAGED PT TO MOVE HER ARMS AND LEGS TO KEEP CIRCULATION . PT ABLE TO DEMONSTRATE WHILE IN BED.
[2020-03-05 16:04] VITALS: BP 140/58
[2020-03-05] MEDS ORDERED: NORCO1 TA1 PO (16:05)
--- NOTE | 2020-03-05 16:20 | NUR ---
IV SITE DISCONITNUED CATHETER INTACT. FAMILY HAS BEEN IN THE ROOM. DISCHARGE INSTRUCTIONS GIVEN AND VERBALIZED UNDERSTANDING.
--- NOTE | 2020-03-05 16:44 | NUR ---
SPOKE WITH VIKY MENG AT REHAB PT JUST LEFT WITH TRANSPORT A FEW MINUTES A GO. ABLE TO GET IN THE WC WITHOUT ANY DIFFICULTY. IV SITE DISCONTINUED CATHETER INTACT. NO REDNESS OR EDEMA. PT WAS ALL SMILES AND THANKED EVERYONE FOR WHAT THEY DID.
== END 2020-03-05 16:27 ==
LOC: ED 15:55 → ED-I 19:40 → MS2 19:40 → ED-I 19:40 → MS2 21:04
PROVIDERS: Emergency Medicine; Nurse Practitioner Family; ADMIT Internal Medicine; ATTEND Internal Medicine
PROC: 30233N1 Transfusion of Nonautologous Red Blood Cells into Peripheral Vein, Percutaneous Approach (ICD-10-PCS; principal; 2020-03-03)
PROC: 0DJ08ZZ Inspection of Upper Intestinal Tract, Via Natural or Artificial Opening Endoscopic (ICD-10-PCS; 2020-03-04)
PROC: 0DBP8ZX Excision of Rectum, Via Natural or Artificial Opening Endoscopic, Diagnostic (ICD-10-PCS; 2020-03-04)
DX: K57.31 Diverticulosis of large intestine without perforation or abscess with bleeding (principal); D62 Acute posthemorrhagic anemia; N17.9 Acute kidney failure, unspecified; I13.0 Hypertensive heart and chronic kidney disease with heart failure and stage 1 through stage 4 chronic kidney disease, or unspecified chronic kidney disease; D17.5 Benign lipomatous neoplasm of intra-abdominal organs; K64.8 Other hemorrhoids; L57.0 Actinic keratosis; I50.9 Heart failure, unspecified; N18.3 Chronic kidney disease, stage 3 (moderate); E03.9 Hypothyroidism, unspecified; I48.0 Paroxysmal atrial fibrillation; I25.10 Atherosclerotic heart disease of native coronary artery without angina pectoris; E78.5 Hyperlipidemia, unspecified; E87.6 Hypokalemia; Z20.828 Contact with and (suspected) exposure to other viral communicable diseases
CPT/HCPCS: G0378; P9016; S0164